=== PATIENT | male | born 1965 | race Caucasian/White ===

== ENCOUNTER 2017-05-03 07:59 | Day surgery (SDC) | payer MEDICARE, MEDICAID ==
--- NOTE | 2017-04-26 09:51 | RADIOLOGY REPORT (SQ) ---
EXAM DESCRIPTION: CHEST PA/LATERAL COMPLETED DATE/TIME: 04/26/2017 9:15 am REASON FOR STUDY: PRE OP COMPARISON: 08/01/2016 EXAM PARAMETERS: NUMBER OF VIEWS: two views TECHNIQUE: Digital Frontal and Lateral radiographic views of the chest acquired. RADIATION DOSE: NA LIMITATIONS: none FINDINGS: LUNGS AND PLEURA: No opacities, masses or pneumothorax. No pleural effusion. MEDIASTINUM AND HILAR STRUCTURES: No masses or contour abnormalities. HEART AND VASCULAR STRUCTURES: Heart normal size. No evidence for failure. BONES: Partially visualized left total shoulder arthroplasty. No acute bony abnormality. Degenerati ve changes noted throughout the spine with disc space narrowing and osteophyte formation. HARDWARE: None in the chest. OTHER: No other significant finding. IMPRESSION: No acute cardiopulmonary disease. TECHNICAL DOCUMENTATION: JOB ID: [id number] [employer]- All Rights Reserved
[2017-04-26 10:20] LABS: APPEARANCE,URINE CLEAR; BILIRUBIN,URINE NEGATIVE (NEGATIVE); GLUCOSE, URINE >=500 mg/dL (NEGATIVE); KETONES,URINE NEGATIVE (NEGATIVE); LEUKOCYTE ESTERASE,URINE NEGATIVE (NEGATIVE); NITRITE,URINE NEGATIVE (NEGATIVE); PROTEIN,URINE NEGATIVE (NEGATIVE); URINE SPECIFIC GRAVITY 1.009; UROBILINOGEN,URINE NEGATIVE mg/dL (<2.0)
[2017-04-26 10:21] LABS: ABSOLUTE BASOPHILS # (AUTO) 0.1 10^3/uL (0.0-0.2); ABSOLUTE EOSINOPHILS # (AUTO) 0.7 10^3/uL (0.0-0.6); ABSOLUTE LYMPHOCYTES (AUTO) 2.5 10^3/uL (0.5-4.7); ABSOLUTE MONOCYTES (AUTO) 0.5 10^3/uL (0.1-1.4); ABSOLUTE NEUT (AUTO) 7.1 10^3/uL (1.7-8.2); EOSINOPHILS % (AUTO) 6.3 % (0-6); HEMATOCRIT 46.3 % (37.9-51.0); HEMOGLOBIN 15.5 g/dL (13.5-17.0); HGB HCT DIFFERENCE 0.2; LYMPHOCYTES % (AUTO) 22.9 % (13-45); MEAN CORPUSCULAR HEMOGLOBIN 29.2 pg (27.0-33.4); MEAN CORPUSCULAR HGB CONC 33.6 g/dL (32.0-36.0); MEAN CORPUSCULAR VOLUME 87 fl (80-97); MONOCYTES % (AUTO) 4.6 % (3-13); RED BLOOD COUNT 5.32 10^6/uL (4.35-5.55); RED CELL DISTRIBUTION WIDTH 13.4 % (11.5-14.0); SEGMENTED NEUTROPHILS % (AUTO) 65.2 % (42-78)
[2017-04-26 10:43] LABS: ANION GAP 15 (5-19); BLOOD UREA NITROGEN 12 mg/dL (7-20); CALCIUM 10.1 mg/dL (8.4-10.2); CARBON DIOXIDE 22 mmol/L (22-30); CHLORIDE 104 mmol/L (98-107); CREATININE RESULT 0.61 mg/dL (0.52-1.25); GLUCOSE 233 mg/dL (75-110); POTASSIUM 4.9 mmol/L (3.6-5.0); SODIUM 140.7 mmol/L (137-145)
--- NOTE | 2017-04-26 11:18 | EKG REPORT ---
SEVERITY:- NORMAL ECG - SINUS RHYTHM : Confirmed by: Rosangela Vizcaino 26-Apr-2017 11:18:36
[~2017-05-03 07:59] MED LIST: CEFAZOLIN 2 GM/D5W RTU 2 GM/50 ML RTUPB IV PRN; LACTATED RINGERS 1000 ML IV PRN
[2017-05-03] MEDS ORDERED: BUPIVACAINE HCL 0.5 % INJ/PF 30 ML SDV ONE (09:32)
[2017-05-03] MEDS ORDERED: LIDOCAINE 1%/EPINEPHRINE INJ 20 ML VIAL ONE (09:32)
[2017-05-03] MEDS ORDERED: FENTANYL CITRATE INJ/PF 100 MCG/2 ML AMPUL ONE ×2 (10:04)
[2017-05-03] MEDS ORDERED: MORPHINE SULFATE 10 MG/ML INJ ONE (10:05)
[2017-05-03] MEDS ORDERED: MIDAZOLAM 2 MG/2 ML INJ ONE (10:05)
[2017-05-03] MEDS ORDERED: PROPOFOL INJ 200 MG/20 ML VIAL IV ONE (10:05)
[2017-05-03] MEDS ORDERED: DIPHENHYDRAMINE HCL 50 MG/ML VIAL IV PRN (10:37)
[2017-05-03] MEDS ORDERED: MORPHINE SULFATE 10 MG/ML INJ IV PRN (10:37)
[2017-05-03] MEDS ORDERED: MEPERIDINE HCL/PF INJ 25 MG/1 ML DISP.SYRIN IV PRN (10:37)
[2017-05-03] MEDS ORDERED: FENTANYL CITRATE INJ/PF 100 MCG/2 ML AMPUL IV PRN ×3 (10:37)
[2017-05-03] MEDS ORDERED: PROMETHAZINE HCL INJ 25 MG/1 ML VIAL IV PRN ×2 (10:37)
--- NOTE | 2017-05-03 10:55 | Operative Report ---
Operative Report DATE OF SURGERY: 05/03/17 PREOPERATIVE DIAGNOSIS: Right medial meniscal tear POSTOPERATIVE DIAGNOSIS: Right medial meniscal tear. Right medial femoral condyle osteochondral lesion. ACL deficiency. Right lateral meniscal tear. Right lateral femoral condyle osteochondral lesion. Grade II chondromalacia the patellofemoral compartment OPERATION: After partial medial and lateral meniscectomy abrasion chondroplasty medial lateral femoral condyles SURGEON: HERNAN ROSEN ANESTHESIA: LMAC ESTIMATED BLOOD LOSS: Minimal PROCEDURE: With the patient supine in the operating table the right lower extremity was prepped and draped in a sterile fashion. The knee is insufflated with Marcaine , Xylocaine, and epinephrine through medial lateral patella portals. Medial lateral patella portals were then created with injection of the arthroscope and debridement mentation. Joint is examined in systematic fashion findings as above. Using an elective frequency ablation probable partial medial meniscectomy performed from approximately 4:00 to 12:00 in the face with Dial. Partial lateral meniscectomy was performed from approximately 7:00 to 12:00 on the face with Dial. An abrasion chondroplasty was performed in the lateral femoral condyle using microfracture awls. Likewise the medial femoral condyle lesion is debrided of loose chondral tissue and then abrasion chondroplasty was performed using microfracture awls. At this point instrumentations removed. Portals closed with nylon. A sterile compressive dressing was applied and the patient was returned to recovery in satisfactory condition.
[2017-05-03] MEDS ORDERED: HYDROCODONE/ACETAMINOPHEN 10-325 MG TABLET PO PRN (12:12)
[2017-05-03] MEDS ORDERED: ONDANSETRON 4 MG TAB.RAPDIS PO PRN (12:13)
[2017-05-03 12:36] VITALS: BP 134/83
== END 2017-05-03 12:33 | disposition home or self-care (01) ==
LOC: OROUT 07:59
PROVIDERS: ATTEND Orthopaedic Surgery
PROC: 0SBC4ZZ Excision of Right Knee Joint, Percutaneous Endoscopic Approach (ICD-10-PCS; 2017-05-03)
PROC: 0SBC4ZZ Excision of Right Knee Joint, Percutaneous Endoscopic Approach (ICD-10-PCS; principal; 2017-05-03 10:00)
DX: M23.205 Derangement of unspecified medial meniscus due to old tear or injury, unspecified knee (principal); M22.41 Chondromalacia patellae, right knee; M25.561 Pain in right knee; F17.210 Nicotine dependence, cigarettes, uncomplicated; M19.90 Unspecified osteoarthritis, unspecified site; E11.9 Type 2 diabetes mellitus without complications; Z79.899 Other long term (current) drug therapy; Z79.84 Long term (current) use of oral hypoglycemic drugs
CPT/HCPCS: 93005; 36415; 82962; 85025; 80048; 81001; 71020; 93010; 29880; J2250; J3010; J3490; J2270; J2704; J0690; 1400

== ENCOUNTER → 2017-10-11 | Outpatient (CLI) | payer MEDICARE, MEDICAID ==
--- NOTE | 2017-10-11 12:58 | RADIOLOGY REPORT (SQ) ---
EXAM DESCRIPTION: CHEST PA/LATERAL COMPLETED DATE/TIME: 10/11/2017 12:13 pm REASON FOR STUDY: PRE OP COMPARISON: 04/26/2017. EXAM PARAMETERS: NUMBER OF VIEWS: two views TECHNIQUE: Digital Frontal and Lateral radiographic views of the chest acquired. RADIATION DOSE: NA LIMITATIONS: none FINDINGS: LUNGS AND PLEURA: No opacities, masses or pneumothorax. No pleural effusion. MEDIASTINUM AND HILAR STRUCTURES: No masses or contour abnormalities. HEART AND VASCULAR STRUCTURES: Heart normal size. No evidence for failure. BONES: No acute findings. HARDWARE: Left shoulder prosthesis. OTHER: No other significant finding. IMPRESSION: NO SIGNIFICANT RADIOGRAPHIC FINDING IN THE CHEST. TECHNICAL DOCUMENTATION: JOB ID: [id number] [employer]- All Rights Reserved
--- NOTE | 2017-10-11 13:22 | EKG REPORT ---
SEVERITY:- NORMAL ECG - SINUS RHYTHM : Confirmed by: Rick Groves MD 11-Oct-2017 13:21:46
[2017-10-11 13:45] LABS: APPEARANCE,URINE SLIGHTLY-CLOUDY; BILIRUBIN,URINE NEGATIVE (NEGATIVE); GLUCOSE, URINE NEGATIVE (NEGATIVE); KETONES,URINE TRACE mg/dL (NEGATIVE); LEUKOCYTE ESTERASE,URINE NEGATIVE (NEGATIVE); NITRITE,URINE NEGATIVE (NEGATIVE); PROTEIN,URINE 30 mg/dL (NEGATIVE); URINE SPECIFIC GRAVITY 1.033
[2017-10-11 13:46] LABS: ABSOLUTE BASOPHILS # (AUTO) 0.1 10^3/uL (0.0-0.2); ABSOLUTE EOSINOPHILS # (AUTO) 0.5 10^3/uL (0.0-0.6); ABSOLUTE LYMPHOCYTES (AUTO) 3.1 10^3/uL (0.5-4.7); ABSOLUTE MONOCYTES (AUTO) 0.6 10^3/uL (0.1-1.4); ABSOLUTE NEUT (AUTO) 6.1 10^3/uL (1.7-8.2); BASOPHILS % (AUTO) 0.9 % (0-2); HEMATOCRIT 45.4 % (37.9-51.0); HEMOGLOBIN 15.9 g/dL (13.5-17.0); HGB HCT DIFFERENCE 2.3; LYMPHOCYTES % (AUTO) 29.7 % (13-45); MEAN CORPUSCULAR HEMOGLOBIN 30.3 pg (27.0-33.4); MEAN CORPUSCULAR HGB CONC 34.9 g/dL (32.0-36.0); MEAN CORPUSCULAR VOLUME 87 fl (80-97); MONOCYTES % (AUTO) 5.5 % (3-13); RED BLOOD COUNT 5.23 10^6/uL (4.35-5.55); RED CELL DISTRIBUTION WIDTH 13.3 % (11.5-14.0); SEGMENTED NEUTROPHILS % (AUTO) 58.9 % (42-78); WHITE BLOOD COUNT 10.3 10^3/uL (4.0-10.5)
[2017-10-11 14:14] LABS: ANION GAP 14 (5-19); BLOOD UREA NITROGEN 13 mg/dL (7-20); CALCIUM 10.4 mg/dL (8.4-10.2); CARBON DIOXIDE 28 mmol/L (22-30); CHLORIDE 104 mmol/L (98-107); CREATININE RESULT 0.69 mg/dL (0.52-1.25); GLUCOSE 152 mg/dL (75-110); POTASSIUM 5.5 mmol/L (3.6-5.0); SODIUM 146.2 mmol/L (137-145)
== END ==
LOC: OD 11:34
PROVIDERS: ATTEND Orthopaedic Surgery
DX: Z01.818 Encounter for other preprocedural examination (principal); M17.11 Unilateral primary osteoarthritis, right knee
CPT/HCPCS: 36415; 71020; 80048; 81001; 85025; 93005; 93010

== ENCOUNTER 2017-10-23 06:52 | Inpatient (IN) | payer MEDICARE, MEDICAID ==
[~2017-10-23 06:52] MED LIST changes: +BUPIVACAINE INJ/PF LIPOSOME/PF 266 MG/20 ML SDV INJ PRN; -CEFAZOLIN 2 GM/D5W RTU 2 GM/50 ML RTUPB IV PRN; +IBUPROFEN 800 MG in NORMAL SALINE 250 ML IV PRN; +LANSOPRAZOLE 15 MG TAB.RAP.DR PO PRN; +LIDOCAINE 0.5% INJ-PF (5 MG/ML) 50 ML SDV SUBCUT PRN; +ONDANSETRON HCL INJ/PF 4 MG/2 ML SDV IV PRN; +OXYCODONE HCL SR 10 MG TABLET PO PRN; +TRANEXAMIC ACID INJ/PF 1,000 MG/10 ML SDV IV PRN; +VANCOMYCIN HCL 1,000 MG in DEXTROSE 5%-WATER 250 ML IV PRN
[2017-10-23] MEDS ORDERED: CEFAZOLIN INJ 1 GM VIAL ONE (07:05)
[2017-10-23] MEDS ORDERED: ONDANSETRON HCL INJ/PF 4 MG/2 ML SDV ONE (08:13)
[2017-10-23] MEDS ORDERED: DEXAMETHASONE SOD PHOSPHATE INJ 4 MG/1 ML VIAL ONE ×2 (08:13→12:52)
[2017-10-23] MEDS ORDERED: PROPOFOL INJ 200 MG/20 ML VIAL IV ONE ×2 (08:13→11:24)
[2017-10-23] MEDS ORDERED: FENTANYL CITRATE INJ/PF 100 MCG/2 ML AMPUL ONE ×2 (08:13)
[2017-10-23] MEDS ORDERED: MIDAZOLAM 2 MG/2 ML INJ ONE (08:13)
[2017-10-23] MEDS ORDERED: MORPHINE SULFATE 10 MG/ML INJ ONE (08:14)
[2017-10-23] MEDS ORDERED: TRANEXAMIC ACID INJ/PF 1,000 MG/10 ML SDV IV ONE ×3 (08:14→12:30)
[2017-10-23] MEDS: BUPIVACAINE INJ/PF LIPOSOME/PF 266 MG/20 ML SDV ONE ×2 (08:50→09:53)
[2017-10-23] MEDS: THROMBIN (BOVINE) TOPICAL 20000 UNIT VIAL ONE ×2 (08:51→09:53)
[2017-10-23] MEDS: THROMBIN (BOVINE) 5000 UNIT EPITAXIS KIT ONE ×2 (08:52→09:53)
[2017-10-23] MEDS ORDERED: FENTANYL CITRATE INJ/PF 100 MCG/2 ML AMPUL IV PRN ×3 (10:03)
[2017-10-23] MEDS ORDERED: DIPHENHYDRAMINE HCL 50 MG/ML VIAL IV PRN ×2 (10:03→10:43)
[2017-10-23] MEDS ORDERED: PROMETHAZINE HCL INJ 25 MG/1 ML VIAL IV PRN ×2 (10:03)
[2017-10-23] MEDS ORDERED: MEPERIDINE HCL/PF INJ 25 MG/1 ML DISP.SYRIN IV PRN (10:03)
[2017-10-23] MEDS ORDERED: MORPHINE SULFATE 10 MG/ML INJ IV PRN ×4 (10:03→10:43)
[2017-10-23] MEDS ORDERED: ONDANSETRON 4 MG TAB.RAPDIS PO PRN ×2 (10:43→12:30)
[2017-10-23] MEDS ORDERED: ONDANSETRON HCL INJ/PF 4 MG/2 ML SDV IV PRN ×2 (10:43→12:30)
[2017-10-23] MEDS ORDERED: ACETAMINOPHEN 325 MG TABLET PO PRN (10:43)
[2017-10-23] MEDS ORDERED: ZOLPIDEM TARTRATE 5 MG TABLET PO PRN ×2 (10:43→12:30)
[2017-10-23] MEDS ORDERED: MAG HYDROX/AL HYDROX/SIMETH SUSP 30 ML UDCUP PO PRN ×2 (10:43→12:30)
--- NOTE | 2017-10-23 10:43 | Operative Report ---
Operative Report DATE OF SURGERY: 10/23/17 PREOPERATIVE DIAGNOSIS: Right knee arthritis OPERATION: Right knee arthroplasty ANESTHESIA: GA TISSUE REMOVED OR ALTERED: Bone to pathology ESTIMATED BLOOD LOSS: 100 PROCEDURE: Implants used: Femur: Cheri triathlon size 8 CR femur Tibia: 7 tibia Tibial liner: 9 mm CS insert Patella: 38 mm oval patella Procedure with the patient supine on the operating table the right the limb is prepped and draped in a sterile fashion. The limb was elevated for exsanguination and the tourniquet inflated to 280 torr. A standard midline median parapatellar approach the knee is taken. Access is gained to the femoral canal through the intercondylar notch. Intramedullary alignment instrumentation used to resect 10 mm of distal femur in 5 of valgus. Sizing guide indicated a size 8 femur. Appropriate cutting jig is then used to fashion anterior posterior and chamfer cuts. In this process there is notching of the anterior femur. In that this is the largest size femur available I think this is unavoidable. A trial reduction of the femur is performed and this is judged to be adequate. Attention was next turned to the tibia. Using an extra medullary alignment system 9 millimeters was resected off the lateral tibial plateau. This is sized to a size 7 tibia. A trial reduction was now performed with a 8 femur and a 7 tibia using a 9 millimeters spacer. It is full extension and central patellofemoral tracking. The articular surface the patella was next resected using an oscillating saw. All trial implants were removed. Polymethylmethacrylate is mixed and used to cement the above implants in place. On adequate curing the cement excess cement was removed the tourniquet was deflated hemostasis obtained the wound is then closed in layers using interrupted Vicryl followed by shawn. A sterile compressive dressing was applied and the patient returned to recovery room in satisfactory condition.
[2017-10-23] MEDS ORDERED: (PENDING PHARMACY ID) (Albuterol Sulfate [Proair Respiclick] 2 PUFF) IN PRN ×2 (10:45→11:22)
--- NOTE | 2017-10-23 11:43 | RADIOLOGY REPORT (SQ) ---
EXAM DESCRIPTION: KNEE RIGHT 2 VIEWS COMPLETED DATE/TIME: 10/23/2017 11:32 am REASON FOR STUDY: Post OP -Long Cassette in PACU M17.11 UNILATERAL PRIMARY OSTEOARTHRITIS, RIGHT KN EE COMPARISON: MRI 08/07/2015, Left knee films 07/14/2016 NUMBER OF VIEWS: Two views TECHNIQUE: Digital radiographic images of the right knee post-procedure. LIMITATIONS: None. FINDINGS: Post right total knee replacement with patellar resurfacing. Few small bone fragments see n along the infrapatellar fat pad. Normal alignment. Surgical skin shawn, benign postop air. IMPRESSION: SATISFACTORY POSTOPERATIVE RIGHT KNEE. TECHNICAL DOCUMENTATION: JOB ID: [id number] [employer]- All Rights Reserved
[2017-10-23] MEDS ORDERED: DEXTROSE 50%-WATER SYRINGE 12.5 GM/25 ML DOSE IV PRN (11:45)
[2017-10-23] MEDS ORDERED: DEXTROSE 40% GEL 15 GM TUBE X 2 PO PRN (11:45)
[2017-10-23] MEDS ORDERED: DEXTROSE 40% GEL 15 GM TUBE PO PRN (11:45)
[2017-10-23] MEDS ORDERED: DEXTROSE 50%-WATER SYRINGE 25 GM/50 ML DOSE IV PRN (11:45)
[2017-10-23] MEDS ORDERED: GLUCAGON,HUMAN RECOMB 1 MG INJ IM PRN (11:45)
[2017-10-23] MEDS ORDERED: ROCURONIUM BROMIDE INJ 50 MG/5 ML VIAL IV ONE (12:52)
[2017-10-23] MEDS ORDERED: SUCCINYLCHOLINE CHLORIDE INJ 200 MG/10 ML VIAL ONE (12:52)
[2017-10-23] MEDS ORDERED: GLYCOPYRROLATE INJ 0.4 MG/2 ML VIAL ONE (12:52)
[2017-10-23] MEDS ORDERED: LIDOCAINE 2% INJ-PF (20 MG/ML) 2 ML AMPUL ONE (12:52)
[2017-10-23] MEDS ORDERED: NEOSTIGMINE METHYLSULFATE 10 MG/10 ML VIAL ONE (12:52)
[2017-10-23] MEDS: MORPHINE SULFATE 10 MG/ML INJ IM PRN ×3 (13:01→21:17)
[2017-10-23] MEDS ORDERED: ALBUTEROL SULFATE HFA (90 MCG/PUFF) 200 PUFF/8.5 GM MDI IH PRN (13:38)
[2017-10-23] MEDS: OXYCODONE HCL IR 5 MG TABLET PO PRN ×2 (13:59→20:35)
[2017-10-23] MEDS: INSULIN LISPRO 100 UNIT/ML 3 ML VIAL SUBCUT PRN ×3 (15:40→21:16)
[2017-10-23] MEDS: METFORMIN HCL 500 MG TABLET PO SCH (16:51)
[2017-10-23] MEDS ORDERED: ACETAMINOPHEN 100 ML IV ONE (17:00)
[2017-10-23] MEDS: PREGABALIN 75 MG CAPSULE PO SCH (17:54)
[2017-10-23] MEDS: CYCLOBENZAPRINE HCL 10 MG TABLET PO SCH (17:54)
[2017-10-23] MEDS ORDERED: PREGABALIN 100 MG CAPSULE PO SCH (18:00)
[2017-10-23] MEDS: SENNOSIDES/DOCUSATE 8.6-50 MG 1 EACH TABLET PO SCH (18:01)
[2017-10-23] MEDS: RINGERS SOLUTION,LACTATED 1,000 ML IV PRN (20:29)
[2017-10-23] MEDS: OXYCODONE HCL SR 10 MG TABLET PO SCH (21:17)
[2017-10-23] MEDS ORDERED: VANCOMYCIN HCL 1,000 MG in DEXTROSE 5%-WATER 250 ML IV ONE (22:45)
[2017-10-24] MEDS: MORPHINE SULFATE 10 MG/ML INJ IM PRN (03:18)
[2017-10-24 05:22] LABS: HEMATOCRIT 36.4 % (37.9-51.0); HEMOGLOBIN 12.5 g/dL (13.5-17.0); HGB HCT DIFFERENCE 1.1; MEAN CORPUSCULAR HEMOGLOBIN 29.6 pg (27.0-33.4); MEAN CORPUSCULAR HGB CONC 34.4 g/dL (32.0-36.0); MEAN CORPUSCULAR VOLUME 86 fl (80-97); RED BLOOD COUNT 4.23 10^6/uL (4.35-5.55); RED CELL DISTRIBUTION WIDTH 13.3 % (11.5-14.0); WHITE BLOOD COUNT 14.8 10^3/uL (4.0-10.5)
[2017-10-24 05:35] LABS: ANION GAP 8 (5-19); BLOOD UREA NITROGEN 12 mg/dL (7-20); CALCIUM 9.3 mg/dL (8.4-10.2); CARBON DIOXIDE 28 mmol/L (22-30); CHLORIDE 103 mmol/L (98-107); CREATININE RESULT 0.71 mg/dL (0.52-1.25); GLUCOSE 201 mg/dL (75-110); SODIUM 139.3 mmol/L (137-145)
[2017-10-24] MEDS ORDERED: LANSOPRAZOLE 30 MG TAB.RAP.DR PO SCH (06:00)
[2017-10-24] MEDS: RINGERS SOLUTION,LACTATED 1,000 ML IV PRN (06:00)
--- NOTE | 2017-10-24 06:50 | PDOC DISCHARGE SUMMARY ---
General - Admit/Disc Date/PCP Admission Date/Primary Care Provider: 10/23/17 06:52 Discharge Date: 10/24/17 - Discharge Diagnosis (1) Arthritis of knee, right Is this a current diagnosis for this admission?: Yes - Additional Information Resuscitation Status: Full Code Discharge Diet: As Tolerated, Regular Discharge Activity: Activity As Tolerated, No Driving, No tub bath, Walk Frequently Home Medications: Pregabalin [Lyrica] 150 mg PO Q8 01/31/13 Hydrocodone/Acetaminophen [Lortab 10-325 mg Tablet] 1 tab PO Q6HP PRN 09/06/16 Metformin HCl [Glucophage] 1,000 mg PO BID 09/06/16 Sitagliptin Phosphate [Januvia] 100 mg PO DAILY 09/06/16 Fluticasone Propionate [Flonase Nasal [place] 50 Mcg/[place] 16 gm] 1 spray NASL DAILY 05/03/17 Cyclobenzaprine HCl 10 mg PO Q8 10/09/17 Lisinopril 20 mg PO DAILY 10/09/17 Meloxicam 7.5 mg PO ASDIR PRN 10/09/17 History of Present Illness History of Present Illness: ZAKI HALL is a 51 year old male with right knee arthritis admitted for elective total right knee arthroplasty. Hospital Course Hospital Course: Patient was admitted through the OR and underwent elective total right knee arthroplasty that was uncomplicated. He was returned to the PACU in satisfactory condition. He was then taken to the surgical floor and seen by physical therapy and nursing staff for pain control. He made progress with physical therapy ambulating 300 feet independently. He will be discharged home today with home health nursing, home physical therapy, wheeled walker and bedside commode. Physical Exam Vital Signs: Temp Pulse Resp BP Pulse Ox 36.8 C 71 17 130/71 H 95 10/24/17 03:50 10/24/17 03:50 10/24/17 03:50 10/24/17 03:50 10/24/17 03:50 Pulse Oximeter Continuous Start: 10/23/17 14: 07 Freq: RTQ4 Status: Active Document 10/24/17 03:41 SFL (Rec: 10/24/17 03:41 SFL [email or web address]) Pulse Oximetry Assessment Oxygen Saturation (92-100) 96 Oxygen Delivery Method Room Air Equipment Usage Equipment in Use Continuous SpO2 Machine # 11 Intake & Output 10/22/17 10/23/17 10/24/17 06:59 06:59 06:59 Intake Total 6350 Output Total 3580 Balance 2770 Weight 177.81 kg General appearance: PRESENT: no acute distress, well-developed, well-nourished Head exam: PRESENT: atraumatic, normocephalic Respiratory exam: PRESENT: unlabored Pulses: PRESENT: normal dorsalis pedis pul, +2 pedal pulses bilateral Vascular exam: PRESENT: normal capillary refill Extremities exam: PRESENT: joint swelling, tenderness Additional comments: Patient lying recumbent in hospital bed with right lower extremity in extension with slight contracture of right knee. Patient's OpSite dressing is saturated with gonzalo blood this dressing is changed and a new one place that is clean dry and intact. He has brisk capillary refill to toes on bilateral lower extremities has +2 pedal pulses. He is tender to palpation about the right knee and there is moderate joint swelling. His sensory and motor functions are intact and his distal neurovascular exam is intact. Musculoskeletal exam: PRESENT: ambulatory Additional comments: Patient makes great progress with physical therapy ambulating 300 feet independently. He will continue to work with home physical therapy to improve strength and range of motion and work towards further ambulation. Neurological exam: PRESENT: alert, awake, oriented to person, oriented to place , oriented to time, oriented to situation, CN II-XII grossly intact. ABSENT: motor sensory deficit Psychiatric exam: PRESENT: appropriate affect, normal mood. ABSENT: homicidal ideation, suicidal ideation Skin exam: PRESENT: dry, intact, warm. ABSENT: cyanosis, rash Results Laboratory Results: 10/24/17 05:04 10/24/17 05:04 10/23/17 10/24/17 10/24/17 08:00 05:04 05:04 WBC 14.8 H RBC 4.23 L Hgb 12.5 L Hct 36.4 L MCV 86 MCH 29.6 MCHC 34.4 RDW 13.3 Plt Count 257 Sodium 139.3 Potassium 4.4 5.0 Chloride 103 Carbon Dioxide 28 Anion Gap 8 BUN 12 Creatinine 0.71 Est GFR ( Amer) > 60 Est GFR (Non-Af Amer) > 60 Glucose 201 H Calcium 9.3 Impressions: Knee X-Ray 10/23/17 10:44 IMPRESSION: SATISFACTORY POSTOPERATIVE RIGHT KNEE. Plan Discharge Plan: 51-year-old white male 1 day status post total right knee arthroplasty. He has made great progress with physical therapy ambulating 300 feet independently and his pain is well controlled. He will be discharged home today with home health nursing, home physical therapy, walker, bedside commode. The long-term service will change his OpSite dressing when they see fit i.e. when it is saturated with gonzalo blood. He will follow-up with Dr. Malin and Chuck LEGER at [facility] surgery 2 weeks postoperatively for staple removal and reevaluation. Time Spent: Less than 30 Minutes
[2017-10-24] MEDS ORDERED: SITAGLIPTIN PHOSPHATE 50 MG TABLET PO SCH (08:00)
[2017-10-24] MEDS: OXYCODONE HCL IR 5 MG TABLET PO PRN (08:24)
[2017-10-24] MEDS: METFORMIN HCL 500 MG TABLET PO SCH (08:25)
[2017-10-24 09:48] VITALS: BP 145/94
[2017-10-24] MEDS: SENNOSIDES/DOCUSATE 8.6-50 MG 1 EACH TABLET PO SCH (09:55)
[2017-10-24] MEDS: CYCLOBENZAPRINE HCL 10 MG TABLET PO SCH (09:55)
[2017-10-24] MEDS: PREGABALIN 75 MG CAPSULE PO SCH (09:55)
[2017-10-24] MEDS: OXYCODONE HCL SR 10 MG TABLET PO SCH (09:56)
[2017-10-24] MEDS ORDERED: PRENATAL VITAMIN W DHA CAPSULE PO SCH (10:00)
[2017-10-24] MEDS ORDERED: FLUTICASONE NASAL SPRAY 50 MCG/SPRY 120 SPRAY/16 GM NASL SCH (10:00)
[2017-10-24] MEDS ORDERED: (PENDING PHARMACY ID) (Lisinopril [Lisinopril] 20 MG) PO SCH (10:00)
[2017-10-24] MEDS ORDERED: LISINOPRIL 10 MG TABLET PO SCH (10:00)
== END 2017-10-24 10:30 | disposition home health service (06) | DRG 470 ==
LOC: INOR 06:52 → 4S 12:54
PROVIDERS: ADMIT Orthopaedic Surgery; ATTEND Orthopaedic Surgery
PROC: 0SRC0J9 Replacement of Right Knee Joint with Synthetic Substitute, Cemented, Open Approach (ICD-10-PCS; principal; 2017-10-23 08:45)
DX: M17.11 Unilateral primary osteoarthritis, right knee (principal); E11.9 Type 2 diabetes mellitus without complications; Z79.84 Long term (current) use of oral hypoglycemic drugs
CPT/HCPCS: 01402; 36415; 80048; 82962; 84132; 85027; 88305; 88311; 94762; 94799; C2625; C9290; G8978-GP; G8979-GP; J0131; J0330; J0690; J1100; J1741; J1815; J2250; J2270; J2405; J2704; J3010; J3370; J3490; J7050; J7060; J7120

== ENCOUNTER → 2018-05-29 | Outpatient (CLI) | payer MEDICARE, MEDICAID ==
[2018-05-29 10:11] LABS: ABSOLUTE BASOPHILS # (AUTO) 0.1 10^3/uL (0.0-0.2); ABSOLUTE EOSINOPHILS # (AUTO) 0.5 10^3/uL (0.0-0.6); ABSOLUTE LYMPHOCYTES (AUTO) 2.4 10^3/uL (0.5-4.7); ABSOLUTE MONOCYTES (AUTO) 0.5 10^3/uL (0.1-1.4); ABSOLUTE NEUT (AUTO) 6.1 10^3/uL (1.7-8.2); BASOPHILS % (AUTO) 0.8 % (0-2); EOSINOPHILS % (AUTO) 4.8 % (0-6); HEMATOCRIT 42.9 % (37.9-51.0); HEMOGLOBIN 14.7 g/dL (13.5-17.0); MEAN CORPUSCULAR HEMOGLOBIN 29.5 pg (27.0-33.4); MEAN CORPUSCULAR HGB CONC 34.3 g/dL (32.0-36.0); MEAN CORPUSCULAR VOLUME 86 fl (80-97); MONOCYTES % (AUTO) 5.1 % (3-13); PLATELET COUNT 305 10^3/uL (150-450); RED CELL DISTRIBUTION WIDTH 13.6 % (11.5-14.0); SEGMENTED NEUTROPHILS % (AUTO) 64.3 % (42-78); TOTAL CELLS COUNTED % (AUTO) 100 %; WHITE BLOOD COUNT 9.5 10^3/uL (4.0-10.5)
[2018-05-29 11:01] LABS: ERYTHROCYTE SEDIMENTATION RATE 22 mm/hr (0-20)
[2018-05-29 11:28] LABS: ANION GAP 12 (5-19); BLOOD UREA NITROGEN 14 mg/dL (7-20); C-REACTIVE PROTEIN 9.5 mg/L (<10.0); CALCIUM 9.9 mg/dL (8.4-10.2); CARBON DIOXIDE 26 mmol/L (22-30); CHLORIDE 103 mmol/L (98-107); GLUCOSE 219 mg/dL (75-110); POTASSIUM 5.2 mmol/L (3.6-5.0); SODIUM 140.6 mmol/L (137-145)
== END ==
LOC: OD 09:04
PROVIDERS: ATTEND Orthopaedic Surgery
DX: M25.561 Pain in right knee (principal)
CPT/HCPCS: 36415; 80048; 85025; 85652; 86140

== ENCOUNTER → 2018-06-11 | Outpatient (CLI) | payer MEDICARE, MEDICAID ==
--- NOTE | 2018-06-11 12:35 | RADIOLOGY REPORT (SQ) ---
EXAM DESCRIPTION: KNEE RIGHT 2 VIEWS COMPLETED DATE/TIME: 06/11/2018 11:50 am REASON FOR STUDY: PRESENCE OF ARTIFICAL R KNEE, LOOSENING Z96.659 PRESENCE OF UNSPECIFIED ARTIFICIA L KNEE JOINT COMPARISON: 10/23/2017. NUMBER OF VIEWS: Two views. TECHNIQUE: AP and lateral radiographic images acquired of the right knee. LIMITATIONS: None. FINDINGS: MINERALIZATION: Normal. BONES: Stable prosthesis. No acute fracture or dislocation. No worrisome bone lesions. JOINT: No effusion. SOFT TISSUES: No soft tissue swelling. No radio-opaque foreign body. OTHER: No other significant finding. IMPRESSION: STABLE KNEE PROSTHESIS. NO SIGNIFICANT BONY FINDINGS. TECHNICAL DOCUMENTATION: JOB ID: [id number] [employer]- All Rights Reserved Reading location - IP/workstation name: [email or web address]
--- NOTE | 2018-06-11 15:56 | RADIOLOGY REPORT (SQ) ---
EXAM DESCRIPTION: NM 3 PHASE BONE SCAN COMPLETED DATE/TIME: 06/11/2018 11:38 am REASON FOR STUDY: PRESENCE OF ARTIFICIAL KNEE JOINT (Z96.659) Z96.659 PRESENCE OF UNSPECIFIED ARTIF ICIAL KNEE JOINT COMPARISON: Right knee radiograph 06/11/2018 right knee radiographs 10/23/2017 RADIONUCLIDE AND DOSE: 20 millicuries Tc99m HDP. The route of agent administration: Intravenous. ADDITIONAL DRUGS AND DOSES: None. TECHNIQUE: Following injection of the radiopharmaceutical, serial blood flow images acquired. Equil ibrium blood pool images then acquired. Routine delayed images at 3 hours acquired of the areas of c linical concern with additional focused images as needed. AREA OF INTEREST: Right knee LIMITATIONS: None. FINDINGS: VASCULAR FLOW IMAGES: There is greater flow to the right lower extremity compared to the l eft. BLOOD POOL IMAGES: Blood pool imaging shows increased activity in the right knee compared to the left . BONES: Bilateral knee arthroplasties. There is increased activity in the right distal femur and prox imal tibia. KIDNEYS: Symmetric excretion without obstruction. OTHER: No other significant finding. IMPRESSION: There is increased blood flow on the right with increased blood pool activity in the rig ht knee. Delayed images show increased activity in the right knee. This is a nonspecific finding. The right knee arthroplasty is more recent than the left, so increased activity would be expected com pared to the left. COMMENT: Quality measure 147: Current bone scan is compared with any available plain radiographs, p rior bone scans, and CT/MRI. TECHNICAL DOCUMENTATION: JOB ID: [id number] [employer]- All Rights Reserved Reading location - IP/workstation name: [email or web address]
== END ==
LOC: RAD 07:28
PROVIDERS: ATTEND Orthopaedic Surgery
DX: T84.092A Other mechanical complication of internal right knee prosthesis, initial encounter (principal); X58.XXXA Exposure to other specified factors, initial encounter; Z96.651 Presence of right artificial knee joint
CPT/HCPCS: 73560; 78315; A9561

== ENCOUNTER → 2018-11-29 | Outpatient (CLI) | payer MEDICARE, MEDICAID ==
--- NOTE | 2018-11-29 16:53 | RADIOLOGY REPORT (SQ) ---
EXAM DESCRIPTION: NM 3 PHASE BONE SCAN COMPLETED DATE/TIME: 11/29/2018 4:28 pm REASON FOR STUDY: PAIN IN LEFT SHOULDER (M25.512) M25.512 PAIN IN LEFT SHOULDER COMPARISON: Left shoulder radiograph 09/19/2016 RADIONUCLIDE AND DOSE: 20 millicuries Tc99m HDP. The route of agent administration: Intravenous. ADDITIONAL DRUGS AND DOSES: None. TECHNIQUE: Following injection of the radiopharmaceutical, serial blood flow images acquired. Equil ibrium blood pool images then acquired. Routine delayed images at 3 hours acquired of the areas of c linical concern with additional focused images as needed. AREA OF INTEREST: Left shoulder LIMITATIONS: None. FINDINGS: VASCULAR FLOW IMAGES: No asymmetry or focal areas of hyperemia. BLOOD POOL IMAGES: No asymmetry or focal areas of soft-tissue hyper-perfusion. BONES: There is significantly increased uptake in the region the left glenoid. This focal uptake in the anterior 4th and 5th ribs on the left and in the right 7th and possibly 8th rib. There is uptake in the right acromioclavicular joint and in the region of the coracoid process on the right. KIDNEYS: Symmetric excretion without obstruction. OTHER: No other significant finding. IMPRESSION: 1. There is considerable uptake in the region of the glenoid on the left. Considerable activity can persist for an extended length of time after an arthroplasty, but the intensity of this uptake is concerning. Consider MRI of the left shoulder. 2. There is apparent degenerative uptake in the right acromioclavicular joint. 3. There is focal uptake in the right coracoid process, and in some of the ribs as described. This could relate to prior trauma if there is a history of such. Metastatic disease to bone cannot be exc luded. Consider radiographs of the ribs, right shoulder, and left shoulder. COMMENT: Quality measure 147: Current bone scan is compared with any available plain radiographs, p rior bone scans, and CT/MRI. TECHNICAL DOCUMENTATION: JOB ID: [id number] [employer]- All Rights Reserved Reading location - IP/workstation name: [email or web address]
== END ==
LOC: RAD 09:42
PROVIDERS: ATTEND Orthopaedic Surgery
DX: M25.512 Pain in left shoulder (principal)
CPT/HCPCS: 78315; A9561; Q9969

== ENCOUNTER → 2018-11-29 | Outpatient (CLI) | payer MEDICARE, MEDICAID ==
[2018-11-29 10:23] LABS: ABSOLUTE BASOPHILS # (AUTO) 0.1 10^3/uL (0.0-0.2); ABSOLUTE EOSINOPHILS # (AUTO) 0.5 10^3/uL (0.0-0.6); ABSOLUTE LYMPHOCYTES (AUTO) 2.1 10^3/uL (0.5-4.7); ABSOLUTE MONOCYTES (AUTO) 0.5 10^3/uL (0.1-1.4); ABSOLUTE NEUT (AUTO) 5.9 10^3/uL (1.7-8.2); BASOPHILS % (AUTO) 0.8 % (0-2); EOSINOPHILS % (AUTO) 5.5 % (0-6); HEMATOCRIT 42.6 % (37.9-51.0); HEMOGLOBIN 15.1 g/dL (13.5-17.0); LYMPHOCYTES % (AUTO) 22.9 % (13-45); MEAN CORPUSCULAR HEMOGLOBIN 30.2 pg (27.0-33.4); MEAN CORPUSCULAR HGB CONC 35.4 g/dL (32.0-36.0); MEAN CORPUSCULAR VOLUME 85 fl (80-97); MONOCYTES % (AUTO) 5.6 % (3-13); PLATELET COUNT 282 10^3/uL (150-450); RED BLOOD COUNT 4.99 10^6/uL (4.35-5.55); RED CELL DISTRIBUTION WIDTH 13.3 % (11.5-14.0); SEGMENTED NEUTROPHILS % (AUTO) 65.2 % (42-78); TOTAL CELLS COUNTED % (AUTO) 100 %
[2018-11-29 10:58] LABS: ANION GAP 9 (5-19); BLOOD UREA NITROGEN 15 mg/dL (7-20); C-REACTIVE PROTEIN 10.2 mg/L (<10.0); CALCIUM 10.1 mg/dL (8.4-10.2); CARBON DIOXIDE 28 mmol/L (22-30); CHLORIDE 102 mmol/L (98-107); GLUCOSE 243 mg/dL (75-110); POTASSIUM 4.8 mmol/L (3.6-5.0); SODIUM 138.9 mmol/L (137-145)
[2018-11-29 11:09] LABS: ERYTHROCYTE SEDIMENTATION RATE 22 mm/hr (0-20)
== END ==
LOC: OD 09:19
PROVIDERS: ATTEND Orthopaedic Surgery
DX: M25.512 Pain in left shoulder (principal)
CPT/HCPCS: 36415; 80048; 85025; 85652; 86140

== ENCOUNTER → 2019-01-09 | Outpatient (CLI) | payer MEDICARE, MEDICAID ==
--- NOTE | 2019-01-09 09:56 | RADIOLOGY REPORT (SQ) ---
EXAM DESCRIPTION: CHEST PA/LATERAL COMPLETED DATE/TIME: 01/09/2019 9:23 am REASON FOR STUDY: PRE-OP COMPARISON: 08/01/2016 08/01/2016 EXAM PARAMETERS: NUMBER OF VIEWS: two views TECHNIQUE: Digital Frontal and Lateral radiographic views of the chest acquired. RADIATION DOSE: NA LIMITATIONS: none FINDINGS: LUNGS AND PLEURA: The interstitial markings in the left infrahilar region are prominent i n appearance, may be on an acute inflammatory basis. The of right lung is clear. No pneumothorax or pleural effusion. MEDIASTINUM AND HILAR STRUCTURES: No masses or contour abnormalities. HEART AND VASCULAR STRUCTURES: Heart normal size. No evidence for failure. BONES: No acute findings. HARDWARE: None in the chest. OTHER: Partially visualize left shoulder arthroplasty, new finding since the prior examination. IMPRESSION: 1. Mildly prominent interstitial markings in the left infrahilar region since the previ ous examination dated 08/01/2016, may represent acute inflammatory changes. Correlation with history and symptoms suggested. TECHNICAL DOCUMENTATION: JOB ID: [id number] [employer]- All Rights Reserved Reading location - IP/workstation name: [email or web address]
[2019-01-09 10:01] LABS: ABSOLUTE BASOPHILS # (AUTO) 0.1 10^3/uL (0.0-0.2); ABSOLUTE EOSINOPHILS # (AUTO) 0.5 10^3/uL (0.0-0.6); ABSOLUTE LYMPHOCYTES (AUTO) 1.8 10^3/uL (0.5-4.7); ABSOLUTE MONOCYTES (AUTO) 0.5 10^3/uL (0.1-1.4); ABSOLUTE NEUT (AUTO) 5.3 10^3/uL (1.7-8.2); BASOPHILS % (AUTO) 0.7 % (0-2); EOSINOPHILS % (AUTO) 6.4 % (0-6); HEMATOCRIT 43.6 % (37.9-51.0); HEMOGLOBIN 15.2 g/dL (13.5-17.0); LYMPHOCYTES % (AUTO) 22.6 % (13-45); MEAN CORPUSCULAR HEMOGLOBIN 29.7 pg (27.0-33.4); MEAN CORPUSCULAR HGB CONC 34.9 g/dL (32.0-36.0); MEAN CORPUSCULAR VOLUME 85 fl (80-97); MONOCYTES % (AUTO) 5.6 % (3-13); PLATELET COUNT 278 10^3/uL (150-450); RED BLOOD COUNT 5.12 10^6/uL (4.35-5.55); RED CELL DISTRIBUTION WIDTH 13.6 % (11.5-14.0); SEGMENTED NEUTROPHILS % (AUTO) 64.7 % (42-78); TOTAL CELLS COUNTED % (AUTO) 100 %; WHITE BLOOD COUNT 8.2 10^3/uL (4.0-10.5)
[2019-01-09 10:08] LABS: APPEARANCE,URINE CLEAR; BILIRUBIN,URINE NEGATIVE (NEGATIVE); COLOR,URINE YELLOW; GLUCOSE, URINE 50 mg/dL (NEGATIVE); KETONES,URINE NEGATIVE (NEGATIVE); LEUKOCYTE ESTERASE,URINE NEGATIVE (NEGATIVE); NITRITE,URINE NEGATIVE (NEGATIVE); PROTEIN,URINE NEGATIVE (NEGATIVE); URINE SPECIFIC GRAVITY 1.013; UROBILINOGEN,URINE NEGATIVE mg/dL (<2.0)
--- NOTE | 2019-01-09 10:10 | EKG REPORT ---
SEVERITY:- NORMAL ECG - SINUS RHYTHM : Confirmed by: Rosangela Vizcaino 09-Jan-2019 10:09:24
[2019-01-09 10:33] LABS: ANION GAP 12 (5-19); BLOOD UREA NITROGEN 9 mg/dL (7-20); CALCIUM 9.9 mg/dL (8.4-10.2); CARBON DIOXIDE 25 mmol/L (22-30); CHLORIDE 104 mmol/L (98-107); GLUCOSE 204 mg/dL (75-110); POTASSIUM 4.6 mmol/L (3.6-5.0); SODIUM 141.1 mmol/L (137-145)
== END ==
LOC: OD 08:38
PROVIDERS: ATTEND Orthopaedic Surgery
DX: Z01.818 Encounter for other preprocedural examination (principal); E11.9 Type 2 diabetes mellitus without complications
CPT/HCPCS: 36415; 71046; 80048; 81001; 83036; 85025; 93005; 93010

== ENCOUNTER → 2019-03-04 | Outpatient (CLI) | payer MEDICARE, MEDICAID | LOC: OD 09:09 | PROVIDERS: ATTEND Orthopaedic Surgery | DX: Z53.9 Procedure and treatment not carried out, unspecified reason (principal) ==

== ENCOUNTER → 2019-12-16 | Outpatient (CLI) | payer MEDICARE, MEDICAID ==
[2019-12-16 11:06] LABS: ABSOLUTE BASOPHILS # (AUTO) 0.1 10^3/uL (0.0-0.2); ABSOLUTE EOSINOPHILS # (AUTO) 0.3 10^3/uL (0.0-0.6); ABSOLUTE LYMPHOCYTES (AUTO) 1.8 10^3/uL (0.5-4.7); ABSOLUTE MONOCYTES (AUTO) 0.5 10^3/uL (0.1-1.4); ABSOLUTE NEUT (AUTO) 3.8 10^3/uL (1.7-8.2); BASOPHILS % (AUTO) 1.2 % (0-2); EOSINOPHILS % (AUTO) 5.1 % (0-6); HEMATOCRIT 39.3 % (37.9-51.0); HEMOGLOBIN 13.7 g/dL (13.5-17.0); LYMPHOCYTES % (AUTO) 27.2 % (13-45); MEAN CORPUSCULAR HEMOGLOBIN 29.8 pg (27.0-33.4); MEAN CORPUSCULAR HGB CONC 34.7 g/dL (32.0-36.0); MEAN CORPUSCULAR VOLUME 86 fl (80-97); MONOCYTES % (AUTO) 7.6 % (3-13); PLATELET COUNT 348 10^3/uL (150-450); RED BLOOD COUNT 4.58 10^6/uL (4.35-5.55); RED CELL DISTRIBUTION WIDTH 13.3 % (11.5-14.0); SEGMENTED NEUTROPHILS % (AUTO) 58.9 % (42-78); TOTAL CELLS COUNTED % (AUTO) 100 %; WHITE BLOOD COUNT 6.5 10^3/uL (4.0-10.5)
[2019-12-16 11:32] LABS: ANION GAP 10 (5-19); BLOOD UREA NITROGEN 11 mg/dL (7-20); C-REACTIVE PROTEIN 36.5 mg/L (<10.0); CALCIUM 9.9 mg/dL (8.4-10.2); CARBON DIOXIDE 28 mmol/L (22-30); CHLORIDE 98 mmol/L (98-107); GLUCOSE 301 mg/dL (75-110); POTASSIUM 4.7 mmol/L (3.6-5.0)
[2019-12-16 11:58] LABS: ERYTHROCYTE SEDIMENTATION RATE 44 mm/hr (0-20)
== END ==
LOC: OD 09:49
PROVIDERS: ATTEND Orthopaedic Surgery
DX: M25.512 Pain in left shoulder (principal)
CPT/HCPCS: 36415; 80048; 85025; 85652; 86140

== ENCOUNTER → 2019-12-20 | Outpatient (CLI) | payer MEDICARE, MEDICAID ==
--- NOTE | 2019-12-20 13:16 | RADIOLOGY REPORT (SQ) ---
EXAM DESCRIPTION: CHEST PA/LATERAL COMPLETED DATE/TIME: 12/20/2019 1:04 pm REASON FOR STUDY: PREOP COMPARISON: 01/09/2019 EXAM PARAMETERS: NUMBER OF VIEWS: two views TECHNIQUE: Digital Frontal and Lateral radiographic views of the chest acquired. RADIATION DOSE: NA LIMITATIONS: none FINDINGS: LUNGS AND PLEURA: No opacities, masses or pneumothorax. No pleural effusion. MEDIASTINUM AND HILAR STRUCTURES: No masses or contour abnormalities. HEART AND VASCULAR STRUCTURES: Heart normal size. No evidence for failure. BONES: No acute findings. HARDWARE: Total left shoulder arthroplasty. OTHER: No other significant finding. IMPRESSION: 1. NO SIGNIFICANT RADIOGRAPHIC FINDING IN THE CHEST. TECHNICAL DOCUMENTATION: JOB ID: [id number] [employer]- All Rights Reserved Reading location - IP/workstation name: [email or web address]
[2019-12-20 13:27] LABS: APPEARANCE,URINE SLIGHTLY-CLOUDY; BILIRUBIN,URINE NEGATIVE (NEGATIVE); GLUCOSE, URINE 50 mg/dL (NEGATIVE); KETONES,URINE TRACE mg/dL (NEGATIVE); LEUKOCYTE ESTERASE,URINE NEGATIVE (NEGATIVE); NITRITE,URINE NEGATIVE (NEGATIVE); PROTEIN,URINE 30 mg/dL (NEGATIVE); URINE SPECIFIC GRAVITY 1.029
[2019-12-20 13:29] LABS: COLOR,URINE DARK YELLOW
--- NOTE | 2019-12-20 14:51 | EKG REPORT ---
SEVERITY:- BORDERLINE ECG - SINUS RHYTHM PROBABLE LEFT ATRIAL ABNORMALITY BORDERLINE INFERIOR Q WAVES : Confirmed by: Kami Salmeron MD 20-Dec-2019 14:50:10
== END ==
LOC: OD 12:23
PROVIDERS: ATTEND Orthopaedic Surgery
DX: Z01.810 Encounter for preprocedural cardiovascular examination (principal); Z01.811 Encounter for preprocedural respiratory examination; Z01.812 Encounter for preprocedural laboratory examination; E11.9 Type 2 diabetes mellitus without complications
CPT/HCPCS: 36415; 71046; 81001; 83036; 93005; 93010

== ENCOUNTER 2020-01-03 12:00 | Inpatient (IN) | payer MEDICARE, MEDICAID ==
[~2020-01-03 12:00] MED LIST changes: +CEFAZOLIN INJ 1 GM VIAL IV PRN; -LANSOPRAZOLE 15 MG TAB.RAP.DR PO PRN; -ONDANSETRON HCL INJ/PF 4 MG/2 ML SDV IV PRN; +PANTOPRAZOLE SODIUM 20 MG TABLET.DR PO PRN; -TRANEXAMIC ACID INJ/PF 1,000 MG/10 ML SDV IV PRN
[2020-01-10] MEDS ORDERED: IBUPROFEN 800 MG in NORMAL SALINE 250 ML IV PRN (05:00)
[2020-01-10] MEDS ORDERED: LIDOCAINE 0.5% INJ-PF (5 MG/ML) 50 ML SDV SUBCUT PRN (05:00)
[2020-01-10] MEDS ORDERED: LACTATED RINGERS 1000 ML IV PRN (05:00)
[2020-01-10] MEDS ORDERED: CEFAZOLIN INJ 1 GM VIAL IV PRN (05:00)
[2020-01-10] MEDS ORDERED: VANCOMYCIN HCL 1,000 MG in DEXTROSE 5%-WATER 250 ML IV PRN (05:00)
[2020-01-10] MEDS ORDERED: OXYCODONE HCL SR 10 MG TABLET PO ONE (05:19)
[2020-01-10] MEDS ORDERED: PANTOPRAZOLE SODIUM 20 MG TABLET.DR PO ONE (05:19)
[2020-01-10] MEDS ORDERED: SUCCINYLCHOLINE CHLORIDE INJ 200 MG/10 ML VIAL ONE (10:19)
[2020-01-10] MEDS ORDERED: ROCURONIUM BROMIDE INJ 50 MG/5 ML VIAL IV ONE (10:19)
[2020-01-10] MEDS ORDERED: NEOSTIGMINE METHYLSULFATE 10 MG/10 ML VIAL ONE (10:19)
[2020-01-10] MEDS ORDERED: GLYCOPYRROLATE 1 MG/5 ML VIAL ONE (10:19)
[2020-01-10] MEDS ORDERED: PHENYLEPHRINE HCL INJ/PF 10 MG/1 ML SDV ONE (10:19)
[2020-01-10] MEDS ORDERED: FAMOTIDINE INJ/PF 20 MG/2 ML SDV IV ONE (10:34)
[2020-01-10] MEDS ORDERED: METOCLOPRAMIDE HCL INJ/PF 10 MG/2 ML SDV ONE (10:34)
[2020-01-10] MEDS ORDERED: BUPIVACAINE HCL 0.5 % INJ/PF 30 ML SDV ONE (11:33)
[2020-01-10] MEDS ORDERED: FENTANYL CITRATE INJ/PF 100 MCG/2 ML AMPUL ONE (11:33)
[2020-01-10] MEDS ORDERED: PROPOFOL INJ 200 MG/20 ML VIAL IV ONE (11:34)
[2020-01-10] MEDS ORDERED: TRANEXAMIC ACID INJ/PF 1,000 MG/10 ML SDV ONE (11:34)
[2020-01-10] MEDS ORDERED: MIDAZOLAM 2 MG/2 ML INJ ONE (11:34)
[2020-01-10] MEDS ORDERED: BUPIVACAINE HCL 0.5%-EPI 1:200000 INJ/PF 30 ML VIAL ONE (11:38)
[2020-01-10] MEDS ORDERED: HYDROMORPHONE HCL INJ/PF 2 MG/ML AMPULE ONE (11:43)
[2020-01-10] MEDS ORDERED: MEPERIDINE HCL/PF INJ 25 MG/1 ML DISP.SYRIN IV PRN (12:34)
[2020-01-10] MEDS ORDERED: FENTANYL CITRATE INJ/PF 100 MCG/2 ML AMPUL IV PRN ×5 (12:34→15:47)
[2020-01-10] MEDS ORDERED: PROMETHAZINE HCL INJ 25 MG/1 ML VIAL IV PRN ×2 (12:34)
[2020-01-10] MEDS ORDERED: DIPHENHYDRAMINE HCL 50 MG/ML VIAL IV PRN (12:34)
[2020-01-10] MEDS ORDERED: MORPHINE SULFATE 10 MG/ML INJ IV PRN (12:34)
[2020-01-10] MEDS ORDERED: VANCOMYCIN HCL INJ 1000 MG VIAL ONE (14:21)
[2020-01-10] MEDS ORDERED: BUPIVACAINE INJ/PF LIPOSOME/PF 266 MG/20 ML SDV ONE (14:33)
--- NOTE | 2020-01-10 14:40 | Discharge Summary ---
Discharge Summary (SDC) - Discharge Final Diagnosis: Mechanical complication left shoulder arthroplasty Date of Surgery: 01/10/20 Discharge Date: 01/10/20 Condition: Good Treatment or Instructions: Limited elevation of left upper extremity. Prescriptions: Oxycodone HCl/Acetaminophen [Percocet 5-325 mg Tablet] 1 tab PO Q6 PRN #40 tab PRN Reason: Referrals: NAHUN BEYER MD [Primary Care Provider] - Discharge Diet: Regular Respiratory Treatments at Home: Deep Breathing/Coughing Discharge Activity: Balance Activity w/Rest, No tub bath Home Care Assistance: None Needed Report the Following to Your Physician Immediately: Shortness of Breath, Fever over 101 Degrees, Drainage-Foul Smelling
--- NOTE | 2020-01-10 14:46 | Operative Report ---
Operative Report DATE OF SURGERY: 01/10/20 PREOPERATIVE DIAGNOSIS: Mechanical complication left shoulder arthroplasty OPERATION: Vision left shoulder arthroplasty SURGEON: HERNAN ROSEN 1ST BUS CLEANER: AJ JONES ANESTHESIA: GA TISSUE REMOVED OR ALTERED: Cultures x2 to microbiology. Removed implants to CSS ESTIMATED BLOOD LOSS: 75 INTRAOPERATIVE FINDINGS: Implants used: Cheri reunion shoulder system. 40 Millimeter concentric glenosphere. 40 mm humeral cup 4 mm thickness. 40 mm X3 humeral insert thickness 4 mm. Glenoid baseplate, 28 mm. Tricortical iliac crest lyophilized bone graft. V toss bone substitute PROCEDURE: With the patient in the beachchair position on the operative table the left upper extremity and forequarter prepped and draped in a sterile fashion. A standard deltopectoral approach to the shoulder is taken. Upon entering the capsule a modest amount of serosanguineous fluid is encountered and this is sent for culture and sensitivity. The shoulder is exposed. Is clear that the glenosphere and the baseplate are loose. The humeral cup was removed from the stem using a tuning fork type tool in the glenoid and the baseplate are easily removed. The glenoid is exposed and there is a bone defect which is uncontained and proximal and posterior presumably between approxi-12:00 and 2:00 on the face of the dial. This defect is filled with a tricortical lyophilized allograft which is impacted into the defect and then V toss bone graft substitute is placed around this allograft to smooth the glenoid surface. A 28 mm glenoid baseplate is then placed with the central screw and 3 peripheral screws into [place] bone. The fourth peripheral screw was not placed because this would be into the defect. The humeral stem was then exposed. A trial reduction performed with a 40 mm concentric glenosphere trial and a 40 mm humeral insert with 4 mm thickness. This represents in a relatively loose fit with a full range of motion and no clear instability. A decision was made to proceed with this construct. The trial implants were removed. The wound bed is copiously irrigated with pulse lavage containing normal saline and Betadine. The glenosphere is impacted onto the baseplate. The 40 mm humeral cup is impacted into the stem. The 40 mm X3 insert is impacted into the humeral cup. The shoulder is reduced. Is again irrigated with pulse lavage. Powdered vancomycin was placed into the wound. The wound is then closed in layers used of the Vicryl followed by shawn. A st erile compressive dressing and shoulder immobilizer applied and the patient is returned to the PACU in satisfactory condition.
[2020-01-10] MEDS ORDERED: LIDOCAINE 2% INJ (20 MG/ML) 20 ML MDV ONE (16:23)
--- NOTE | 2020-01-10 16:23 | RADIOLOGY REPORT (SQ) ---
EXAM DESCRIPTION: SHOULDER LEFT 2 OR MORE VIEWS COMPLETED DATE/TIME: 01/10/2020 3:55 pm REASON FOR STUDY: Post op COMPARISON: 09/19/2016, TECHNIQUE: Three views of left shoulder were submitted. LIMITATIONS: None. FINDINGS: Patient is status post total left shoulder arthroplasty revision. No unexpected findings. Please refer to the operative report for further discussion. IMPRESSION: Postsurgical changes as described. No unexpected findings. TECHNICAL DOCUMENTATION: JOB ID: [id number] [employer]- All Rights Reserved Reading location - IP/workstation name: [email or web address]
[2020-01-10] MEDS ORDERED: LIDOCAINE 1%/EPINEPHRINE INJ 20 ML VIAL ONE ×2 (16:24→16:26)
[2020-01-10] MEDS ORDERED: ROPIVACAINE HCL 0.5% INJ/PF (5 MG/1 ML) 30 ML SDV ONE (16:24)
[2020-01-10] MEDS ORDERED: DEXAMETHASONE SOD PHOS INJ 10 MG/1 ML VIAL ONE (17:49)
[2020-01-10 18:48] VITALS: BP 152/86
[2020-01-12] MEDS ORDERED: OXYCODONE HCL SR 10 MG TABLET PO PRN (05:00)
[2020-01-12] MEDS ORDERED: PANTOPRAZOLE SODIUM 20 MG TABLET.DR PO PRN (05:00)
[2020-01-12] MEDS ORDERED: BUPIVACAINE INJ/PF LIPOSOME/PF 266 MG/20 ML SDV INJ PRN (05:00)
== END 2020-01-10 20:15 | disposition home or self-care (01) | DRG 483 ==
LOC: EDSTATUS 12:00 → INOR 01-10 09:56 → 4S 01-10 18:33
PROVIDERS: ADMIT Orthopaedic Surgery; ATTEND Orthopaedic Surgery
PROC: 0RPK0JZ Removal of Synthetic Substitute from Left Shoulder Joint, Open Approach (ICD-10-PCS; 2020-01-10)
PROC: 0RRK0JZ Replacement of Left Shoulder Joint with Synthetic Substitute, Open Approach (ICD-10-PCS; principal; 2020-01-10 12:00)
DX: T84.038A Mechanical loosening of other internal prosthetic joint, initial encounter (principal); E11.9 Type 2 diabetes mellitus without complications; I10 Essential (primary) hypertension; Y83.1 Surgical operation with implant of artificial internal device as the cause of abnormal reaction of the patient, or of later complication, without mention of misadventure at the time of the procedure; Z96.612 Presence of left artificial shoulder joint; Z79.899 Other long term (current) drug therapy; Z87.891 Personal history of nicotine dependence
CPT/HCPCS: 01638; 36415; 82947; 82962; 83036; 86850; 86900; 86901; 87070; 87075; 87205; C9290; J0330; J1100; J1170; J1741; J2250; J2370; J2704; J2710; J2765; J2795; J3010; J3370; J3490; J7050; J7060; S0028

== ENCOUNTER 2020-03-18 11:33 | Emergency (ER) | payer MEDICARE, MEDICAID ==
--- NOTE | 2020-03-18 11:54 | ER Document Report ---
ED Medical Screen (RME) - General Chief Complaint: Shoulder Pain Stated Complaint: LEFT SHOULDER PAIN Time Seen by Provider: 03/18/20 11:48 Primary Care Provider: NAHUN BEYER MD [Primary Care Provider] - Follow up as needed Information source: Patient Notes: Patient presents complaining of left shoulder joint pain with redness and swelling over the incision site from the previous shoulder joint replacement surgery. Patient states he had his third shoulder joint replacement performed in December of this year by Dr. Malin. Patient states that the scars appear to be wider today with redness. Patient reports some increased pain to the joint as well. Patient does have a history of diabetes. Patient states blood sugars have been stable. I have greeted and performed a rapid initial assessment of this patient. A comprehensive ED assessment and evaluation of the patient, analysis of test results and completion of the medical decision making process will be conducted by additional ED providers. TRAVEL OUTSIDE OF THE [place] IN LAST 30 DAYS: No - Related Data Allergies/Adverse Reactions: monosodium glutamate Allergy (Severe, Verified 01/10/20 11:13) VOMITING; HEADACHES Past Medical History - Past Medical History Cardiac Medical History: Reports: Hx Hypertension Denies: Hx Atrial Fibrillation, Hx Congestive Heart Failure, Hx Coronary Artery Disease, Hx Heart Attack, Hx Hypercholesterolemia, Hx Peripheral Vascular Disease, Hx Pulmonary Embolism, Hx Heart Murmur Pulmonary Medical History: Reports: Hx Pneumonia Denies: Hx Asthma, Hx Bronchitis, Hx COPD, Hx Respiratory Failure, Hx Sleep Apnea, Hx Tuberculosis Neurological Medical History: Denies: Hx Cerebrovascular Accident, Hx Seizures Endocrine Medical History: Reports: Hx Diabetes Mellitus Type 2. Denies: Hx Graves' Disease, Hx Hyperthyroidism, Hx Hypothyroidism Renal/ Medical History: Reports: Hx Kidney Stones - 10 yrs ago. Denies: Hx Benign Prostatic Hyperplasia, Hx End Stage Renal Disease, Hx Peritoneal Dialysis Malignancy Medical History: Denies Hx Lung Cancer GI Medical History: Denies: Hx Crohn's Disease, Hx Gastroesophageal Reflux Disease, Hx Hiatal Hernia, Hx Irritable Bowel, Hx Liver Failure, Hx Pancreatitis, Hx Ulcer Musculoskeltal Medical History: Reports Hx Arthritis, Denies Hx Fibromyalgia, Denies Hx Muscular Dystrophy, Denies Hx Systemic Lupus Erythematosus Psychiatric Medical History: Denies: Hx Bipolar Disorder, Hx Depression, Hx Post Traumatic Stress Disorder Traumatic Medical History: Denies: Hx Fractures Past Surgical History: Reports: Hx Cholecystectomy, Hx Orthopedic Surgery - left shoulderx5, left kneex20, Hx Tonsillectomy. Denies: Hx Appendectomy, Hx Bowel Surgery, Hx Colostomy, Hx Coronary Artery Bypass Graft, Hx Gastric Bypass Surgery, Hx Herniorrhaphy, Hx Pacemaker - Immunizations Hx Diphtheria, Pertussis, Tetanus Vaccination: Yes Physical Exam - Vital signs Vitals: Temp Pulse Resp BP Pulse Ox 98.9 F 104 H 20 165/101 H 98 03/18/20 11:38 03/18/20 11:38 03/18/20 11:38 03/18/20 11:38 03/18/20 11:38 - General General appearance: Appears well, Alert Notes: Swelling overlying scars from previous shoulder joint replacement surgery, erythema to the scar with fluctuance Course - Vital Signs Vital signs: Temp Pulse Resp BP Pulse Ox 98.9 F 104 H 20 165/101 H 98 03/18/20 11:38 03/18/20 11:38 03/18/20 11:38 03/18/20 11:38 03/18/20 11:38 Doctor's Discharge - Discharge Referrals: NAHUN BEYER MD [Primary Care Provider] - Follow up as needed
[2020-03-18 12:16] LABS: ABSOLUTE BASOPHILS # (AUTO) 0.1 10^3/uL (0.0-0.2); ABSOLUTE EOSINOPHILS # (AUTO) 0.3 10^3/uL (0.0-0.6); ABSOLUTE LYMPHOCYTES (AUTO) 2.5 10^3/uL (0.5-4.7); ABSOLUTE MONOCYTES (AUTO) 0.6 10^3/uL (0.1-1.4); ABSOLUTE NEUT (AUTO) 9.1 10^3/uL (1.7-8.2); BASOPHILS % (AUTO) 1.1 % (0-2); EOSINOPHILS % (AUTO) 2.4 % (0-6); HEMATOCRIT 39.4 % (37.9-51.0); HEMOGLOBIN 13.6 g/dL (13.5-17.0); LYMPHOCYTES % (AUTO) 19.6 % (13-45); MEAN CORPUSCULAR HEMOGLOBIN 28.3 pg (27.0-33.4); MEAN CORPUSCULAR HGB CONC 34.5 g/dL (32.0-36.0); MEAN CORPUSCULAR VOLUME 82 fl (80-97); MONOCYTES % (AUTO) 5.1 % (3-13); PLATELET COUNT 526 10^3/uL (150-450); RED CELL DISTRIBUTION WIDTH 13.5 % (11.5-14.0); SEGMENTED NEUTROPHILS % (AUTO) 71.8 % (42-78); TOTAL CELLS COUNTED % (AUTO) 100 %; WHITE BLOOD COUNT 12.6 10^3/uL (4.0-10.5)
[2020-03-18 12:30] LABS: ALBUMIN 4.2 g/dL (3.5-5.0); ALKALINE PHOSPHATASE 119 U/L (38-126); ANION GAP 13 (5-19); ASPARTATE AMINO TRANSFERASE 15 U/L (17-59); BILIRUBIN,DIRECT 0.1 mg/dL (0.0-0.4); BILIRUBIN,TOTAL 0.4 mg/dL (0.2-1.3); BLOOD UREA NITROGEN 16 mg/dL (7-20); CALCIUM 9.9 mg/dL (8.4-10.2); CARBON DIOXIDE 25 mmol/L (22-30); CHLORIDE 95 mmol/L (98-107); POTASSIUM 4.6 mmol/L (3.6-5.0); TOTAL PROTEIN 7.7 g/dL (6.3-8.2)
--- NOTE | 2020-03-18 12:36 | RADIOLOGY REPORT (SQ) ---
EXAM DESCRIPTION: SHOULDER LEFT 2 OR MORE VIEWS IMAGES COMPLETED DATE/TIME: 03/18/2020 12:19 pm REASON FOR STUDY: pain, redness, swelling COMPARISON: 01/10/2020 NUMBER OF VIEWS: Three views. TECHNIQUE: Internal rotation, external rotation, and Y view images acquired of the left shoulder. LIMITATIONS: Patient positioning FINDINGS: MINERALIZATION: Decreased. BONES: Postsurgical changes from the reverse left shoulder arthroplasty. Unchanged inferior subluxat ion of the humerus in relation to the glenoid component. No acute bony abnormality identified. Post surgical/traumatic changes at the glenoid and distal clavicle with dysmorphic appearance. Ossific densities inferior to the glenoid, possibly heterotopic ossification versus postsurgical debris. JOINTS: Unchanged inferior subluxation of the humeral component relation to the glenoid. No definiti ve dislocation. VISUALIZED LUNGS AND RIBS: No pneumothorax. No rib fracture. SOFT TISSUES: No radiopaque foreign body. OTHER: No other significant finding. IMPRESSION: Stable postsurgical changes from the left reverse shoulder arthroplasty. No definite ac [place] bony abnormality. Unchanged increased subacromial space and inferior subluxation of the humeral component which may be related to postsurgical change or joint effusion. TECHNICAL DOCUMENTATION: JOB ID: [id number] 2010 [employer]- All Rights Reserved Reading location - IP/workstation name: [email or web address]
[2020-03-18 12:38] LABS: GLUCOSE 446 mg/dL (75-110)
[2020-03-18 13:30] VITALS: BP 138/84
[2020-03-18] MEDS ORDERED: HYDROCODONE/ACETAMINOPHEN 5-325 MG TABLET PO ONE (14:43)
--- NOTE | 2020-03-18 14:47 | RADIOLOGY REPORT (SQ) ---
EXAM DESCRIPTION: U/S EXTREMITY NONVASCULAR LTD IMAGES COMPLETED DATE/TIME: 03/18/2020 2:29 pm REASON FOR STUDY: L shoulder, eval for abscess COMPARISON: Same day radiograph. TECHNIQUE: Dynamic and static grayscale images acquired of the localized site of clinical concern an d recorded on PACS. Additional selected color Doppler and spectral images recorded. SITE OF CONCERN: Left shoulder LIMITATIONS: None. FINDINGS: SKIN AND SUBCUTANEOUS TISSUES: Complex hypoechoic collection with internal debris noted wi thin the subcutaneous tissues of the left shoulder measuring approximately 6.1 x 7.0 x 2.3 cm. No in ternal vascularity. DEEP SOFT TISSUES/MUSCLES: As above. VASCULAR: Nonvisualized. OTHER: No other significant finding. IMPRESSION: Complex hypoechoic collection along the left shoulder measuring 6.1 x 7.0 x 2.3 cm susy tible with abscess. TECHNICAL DOCUMENTATION: JOB ID: [id number] 2010 [employer]- All Rights Reserved Reading location - IP/workstation name: [email or web address]
--- NOTE | 2020-03-18 15:00 | ER Document Report ---
HPI - HPI Time Seen by Provider: 03/18/20 11:48 Pain Level: 3 Notes: Patient is a 54-year-old male presenting to the emergency department with concern for possible abscess to his left shoulder. Patient reports he had 3 shoulder replacement surgeries with the most recent being done this past December. Patient reports things were going fine, the area was healing well until about 3 days ago when he started having increasing erythema, swelling and pain to the area. He states there is now a large mushy area that he is concerned is infected. He denies running any fevers but does report occasional chills. - REPRODUCTIVE Reproductive: DENIES: : - MUSCULOSKELETAL Musculoskeletal: REPORTS: Extremity pain - left shoulder Past Medical History - General Information source: Patient - Social History Smoking Status: Current Some Day Smoker Chew tobacco use (# tins/day): No Frequency of alcohol use: None Drug Abuse: None Family History: Reviewed & Not Pertinent Patient has homicidal ideation: No - Past Medical History Cardiac Medical History: Reports: Hx Hypertension Denies: Hx Atrial Fibrillation, Hx Congestive Heart Failure, Hx Coronary Artery Disease, Hx Heart Attack, Hx Hypercholesterolemia, Hx Peripheral Vascular Disease, Hx Pulmonary Embolism, Hx Heart Murmur Pulmonary Medical History: Reports: Hx Pneumonia Denies: Hx Asthma, Hx Bronchitis, Hx COPD, Hx Respiratory Failure, Hx Sleep Apnea, Hx Tuberculosis Neurological Medical History: Denies: Hx Cerebrovascular Accident, Hx Seizures Endocrine Medical History: Reports: Hx Diabetes Mellitus Type 2. Denies: Hx Graves' Disease, Hx Hyperthyroidism, Hx Hypothyroidism Renal/ Medical History: Reports: Hx Kidney Stones - 10 yrs ago. Denies: Hx B enign Prostatic Hyperplasia, Hx End Stage Renal Disease, Hx Peritoneal Dialysis Malignancy Medical History: Denies Hx Lung Cancer GI Medical History: Denies: Hx Crohn's Disease, Hx Gastroesophageal Reflux Disease, Hx Hiatal Hernia, Hx Irritable Bowel, Hx Liver Failure, Hx Pancreatitis, Hx Ulcer Musculoskeletal Medical History: Reports Hx Arthritis, Denies Hx Fibromyalgia, Denies Hx Muscular Dystrophy, Denies Hx Systemic Lupus Erythematosus Psychiatric Medical History: Denies: Hx Bipolar Disorder, Hx Depression, Hx Post Traumatic Stress Disorder Traumatic Medical History: Denies: Hx Fractures Past Surgical History: Reports: Hx Cholecystectomy, Hx Orthopedic Surgery - left shoulderx5, left kneex20, Hx Tonsillectomy. Denies: Hx Appendectomy, Hx Bowel Surgery, Hx Colostomy, Hx Coronary Artery Bypass Graft, Hx Gastric Bypass Surgery, Hx Herniorrhaphy, Hx Pacemaker - Immunizations Hx Diphtheria, Pertussis, Tetanus Vaccination: Yes Vertical Provider Document - CONSTITUTIONAL Notes: PHYSICAL EXAMINATION: GENERAL: Well-appearing, well-nourished and in no acute distress. HEAD: Atraumatic, normocephalic. EYES: Pupils equal round extraocular movements intact, conjunctiva are normal. ENT: Nares patent NECK: Normal range of motion LUNGS: No respiratory distress Musculoskeletal: Normal range of motion, area of erythema with induration and fluctuance noted to the anterior left shoulder over the old surgical incision. NEUROLOGICAL: Normal speech, normal gait. PSYCH: Normal mood, normal affect. SKIN: Warm, Dry, normal turgor, no rashes or lesions noted. - INFECTION CONTROL TRAVEL OUTSIDE OF THE [place] IN LAST 30 DAYS: No Course - Re-evaluation Re-evalutation: Laboratory 03/18/20 03/18/20 12:00 12:00 WBC 12.6 H RBC 4.80 Hgb 13.6 Hct 39.4 MCV 82 MCH 28.3 MCHC 34.5 RDW 13.5 Plt Count 526 H Lymph % (Auto) 19.6 [place] % (Auto) 5.1 Eos % (Auto) 2.4 Baso % (Auto) 1.1 Absolute Neuts (auto) 9.1 H Absolute Lymphs (auto) 2.5 Absolute Monos (auto) 0.6 Absolute Eos (auto) 0.3 Absolute Basos (auto) 0.1 Seg Neutrophils % 71.8 Sodium 133.1 L Potassium 4.6 Chloride 95 L Carbon Dioxide 25 Anion Gap 13 BUN 16 Creatinine 0.56 Est GFR ( Amer) > 60 Est GFR (MDRD) Non-Af > 60 Glucose 446 H* Calcium 9.9 Total Bilirubin 0.4 Direct Bilirubin 0.1 Neonat Total Bilirubin Not Reportable Neonat Direct Bilirubin Not Reportable Neonat Indirect Bili Not Reportable AST 15 L ALT 15 Alkaline Phosphatase 119 Total Protein 7.7 Albumin 4.2 Shoulder X-Ray 03/18/20 11:52 IMPRESSION: Stable postsurgical changes from the left reverse shoulder arthroplasty. No definite acute bony abnormality. Unchanged increased subacromial space and inferior subluxation of the humeral component which may be related to postsurgical change or joint effusion. Extremity Ultrasound 03/18/20 13:00 IMPRESSION: Complex hypoechoic collection along the left shoulder measuring 6.1 x 7.0 x 2.3 cm compatible with abscess. 03/18/20 15:00 Called and spoke with Dr. Roesn, patient's surgeon. He would like to see the patient in the office tomorrow morning. He advised to hold off on any antib iotics until he can get cultures tomorrow. - Vital Signs Vital signs: Temp Pulse Resp BP Pulse Ox 98.9 F 104 H 18 138/84 H 99 03/18/20 11:52 03/18/20 11:38 03/18/20 14:09 03/18/20 13:00 03/18/20 14:09 - Laboratory Result Diagrams: 03/18/20 12:00 03/18/20 12:00 Laboratory results interpreted by me: 03/18/20 03/18/20 12:00 12:00 WBC 12.6 H Plt Count 526 H Absolute Neuts (auto) 9.1 H Sodium 133.1 L Chloride 95 L Glucose 446 H* AST 15 L Discharge - Discharge Clinical Impression: Shoulder abscess Condition: Stable Disposition: HOME, SELF-CARE Additional Instructions: I called and spoke with Dr. Rosen, he would like to see you in the office tomorrow morning. Please call their office as soon as you leave here let them know that Dr. Rosen wants to see you tomorrow. Continue to take your pain medication as prescribed. We are not starting you on antibiotics as it would be best to get cultures from the area prior to the start of antibiotics. Referrals: HERNAN ROSEN MD [ACTIVE STAFF] - Follow up as needed
== END 2020-03-18 15:19 | disposition home or self-care (01) ==
LOC: ER 11:33
DX: L02.419 Cutaneous abscess of limb, unspecified (principal); M25.512 Pain in left shoulder; Z96.612 Presence of left artificial shoulder joint; F17.200 Nicotine dependence, unspecified, uncomplicated; I10 Essential (primary) hypertension; E11.9 Type 2 diabetes mellitus without complications
CPT/HCPCS: 99284; 36415; 87040; 85025; 80053; 73030; 76882; A9270

== ENCOUNTER 2020-03-23 09:49 | Day surgery (SDC) | payer MEDICARE, MEDICAID ==
[~2020-03-23 09:49] MED LIST changes: -BUPIVACAINE INJ/PF LIPOSOME/PF 266 MG/20 ML SDV INJ PRN; -CEFAZOLIN INJ 1 GM VIAL IV PRN; +DEXAMETHASONE SOD PHOSPHATE INJ 4 MG/1 ML VIAL ONE; +FENTANYL CITRATE INJ/PF 100 MCG/2 ML AMPUL ONE; -IBUPROFEN 800 MG in NORMAL SALINE 250 ML IV PRN; -LACTATED RINGERS 1000 ML IV PRN; -LIDOCAINE 0.5% INJ-PF (5 MG/ML) 50 ML SDV SUBCUT PRN; +MIDAZOLAM 2 MG/2 ML INJ ONE; +ONDANSETRON HCL INJ/PF 4 MG/2 ML SDV ONE; -OXYCODONE HCL SR 10 MG TABLET PO PRN; -PANTOPRAZOLE SODIUM 20 MG TABLET.DR PO PRN; +PROPOFOL INJ 200 MG/20 ML VIAL IV ONE; -VANCOMYCIN HCL 1,000 MG in DEXTROSE 5%-WATER 250 ML IV PRN
[2020-03-23 10:35] LABS: ABSOLUTE BASOPHILS # (AUTO) 0.1 10^3/uL (0.0-0.2); ABSOLUTE EOSINOPHILS # (AUTO) 0.3 10^3/uL (0.0-0.6); ABSOLUTE MONOCYTES (AUTO) 0.5 10^3/uL (0.1-1.4); ABSOLUTE NEUT (AUTO) 6.4 10^3/uL (1.7-8.2); BASOPHILS % (AUTO) 0.7 % (0-2); EOSINOPHILS % (AUTO) 3.6 % (0-6); HEMOGLOBIN 13.6 g/dL (13.5-17.0); LYMPHOCYTES % (AUTO) 21.3 % (13-45); MEAN CORPUSCULAR HEMOGLOBIN 28.1 pg (27.0-33.4); MEAN CORPUSCULAR HGB CONC 34.7 g/dL (32.0-36.0); MEAN CORPUSCULAR VOLUME 81 fl (80-97); MONOCYTES % (AUTO) 5.7 % (3-13); PLATELET COUNT 446 10^3/uL (150-450); RED BLOOD COUNT 4.82 10^6/uL (4.35-5.55); RED CELL DISTRIBUTION WIDTH 13.6 % (11.5-14.0); SEGMENTED NEUTROPHILS % (AUTO) 68.7 % (42-78); TOTAL CELLS COUNTED % (AUTO) 100 %; WHITE BLOOD COUNT 9.3 10^3/uL (4.0-10.5)
[2020-03-23 10:49] VITALS: BP 154/88
[2020-03-23 10:56] LABS: APPEARANCE,URINE CLEAR; BILIRUBIN,URINE NEGATIVE (NEGATIVE); COLOR,URINE YELLOW; GLUCOSE, URINE >=500 mg/dL (NEGATIVE); KETONES,URINE NEGATIVE (NEGATIVE); LEUKOCYTE ESTERASE,URINE NEGATIVE (NEGATIVE); NITRITE,URINE NEGATIVE (NEGATIVE); PROTEIN,URINE 30 mg/dL (NEGATIVE); URINE SPECIFIC GRAVITY 1.025; UROBILINOGEN,URINE NEGATIVE mg/dL (<2.0)
[2020-03-23 11:01] LABS: ANION GAP 9 (5-19); BLOOD UREA NITROGEN 15 mg/dL (7-20); CALCIUM 9.9 mg/dL (8.4-10.2); CARBON DIOXIDE 25 mmol/L (22-30); CHLORIDE 98 mmol/L (98-107); GLUCOSE 329 mg/dL (75-110); POTASSIUM 4.9 mmol/L (3.6-5.0)
[2020-03-23] MEDS ORDERED: INSULIN REG, HUMAN 100 UNIT/ML 3 ML VIAL (PYX) ONE (11:14)
== END 2020-03-23 13:45 | disposition home or self-care (01) ==
LOC: OROUT 09:49
PROVIDERS: ATTEND Orthopaedic Surgery
DX: Z03.818 Encounter for observation for suspected exposure to other biological agents ruled out (principal); R73.9 Hyperglycemia, unspecified; Z96.612 Presence of left artificial shoulder joint; Z79.01 Long term (current) use of anticoagulants; Z53.20 Procedure and treatment not carried out because of patient's decision for unspecified reasons
CPT/HCPCS: 36415; 82962; 85025; 80048; 81001; U0003; A9270; 87635; J1100; J1815; J2250; J2405; J2704; J3010

== ENCOUNTER 2020-03-31 08:32 | Inpatient (IN) | payer MEDICARE, MEDICAID ==
[~2020-03-31 08:32] MED LIST changes: -DEXAMETHASONE SOD PHOSPHATE INJ 4 MG/1 ML VIAL ONE; -FENTANYL CITRATE INJ/PF 100 MCG/2 ML AMPUL ONE; +METOCLOPRAMIDE HCL INJ/PF 10 MG/2 ML SDV ONE; -MIDAZOLAM 2 MG/2 ML INJ ONE; +PHENYLEPHRINE HCL INJ/PF 10 MG/1 ML SDV ONE; -PROPOFOL INJ 200 MG/20 ML VIAL IV ONE; +ROCURONIUM BROMIDE INJ 50 MG/5 ML VIAL IV ONE
[2020-03-31] MEDS ORDERED: BUPIVACAINE HCL 0.25 % INJ/PF (2.5 MG/1 ML) 30 ML VIAL ONE (12:02)
[2020-03-31] MEDS ORDERED: HYDROMORPHONE HCL INJ/PF 2 MG/ML AMPULE ONE (12:25)
[2020-03-31] MEDS ORDERED: MIDAZOLAM 2 MG/2 ML INJ ONE (12:25)
[2020-03-31] MEDS ORDERED: FENTANYL CITRATE INJ/PF 100 MCG/2 ML AMPUL ONE (12:25)
[2020-03-31] MEDS ORDERED: PROPOFOL INJ 200 MG/20 ML VIAL IV ONE (12:26)
[2020-03-31] MEDS ORDERED: VANCOMYCIN HCL INJ 1000 MG VIAL ONE (12:32)
[2020-03-31] MEDS ORDERED: BUPIVACAINE INJ/PF LIPOSOME/PF 266 MG/20 ML SDV ONE (12:32)
[2020-03-31] MEDS ORDERED: PROPOFOL 0 MG/0 ML INFUS..BTL IV ONE (12:43)
[2020-03-31] MEDS ORDERED: CEFAZOLIN INJ 1 GM VIAL ONE (13:51)
[2020-03-31] MEDS ORDERED: PROMETHAZINE HCL INJ 25 MG/1 ML VIAL IV PRN ×2 (13:53)
[2020-03-31] MEDS ORDERED: FENTANYL CITRATE INJ/PF 100 MCG/2 ML AMPUL IV PRN ×3 (13:53)
[2020-03-31] MEDS ORDERED: MEPERIDINE HCL/PF INJ 25 MG/1 ML DISP.SYRIN IV PRN (13:53)
[2020-03-31] MEDS ORDERED: OXYCODONE-ACETAMINOPHEN 5-325 MG TABLET PO PRN ×2 (13:53)
[2020-03-31] MEDS ORDERED: ONDANSETRON HCL INJ/PF 4 MG/2 ML SDV IV PRN (13:53)
[2020-03-31] MEDS ORDERED: DIPHENHYDRAMINE HCL 50 MG/ML VIAL IV PRN (13:53)
--- NOTE | 2020-03-31 14:52 | Operative Report ---
Operative Report DATE OF SURGERY: 03/31/20 PREOPERATIVE DIAGNOSIS: Left shoulder periprosthetic infection POSTOPERATIVE DIAGNOSIS: Same OPERATION: Irrigation and excisional debridement left shoulder SURGEON: AJ JONES ANESTHESIA: GA TISSUE REMOVED OR ALTERED: Culture sent for aerobic, anaerobic, AFB and fungal COMPLICATIONS: None ESTIMATED BLOOD LOSS: 200cc PROCEDURE: Indication for above procedure: 54-year-old male with longstanding history of left shoulder issues. Patient has underwent multiple revisions most recently revision reverse total shoulder which is his third total shoulder arthroplasty performed unfortunately patient developed redness swelling and drainage. He was initially set up for operative intervention on 03/23/2020 but left AMA from the preoperative holding area. Patient subsequently followed up in my office at which point we discussed treatment options and decision was made to proceed with irrigation and debridement with polyethylene exchange as was previously planned. Procedure In Detail: Patient was seen and evaluated in the preoperative holding area. The LEFT upper extremity was initialized and marked. Antibiotics held until cultures then patient received 2 g of Ancef. Patient received preoperative regional block in the holding area. Patient was taken back to the operative room where transferred to the operative table and placed under general anesthesia. Once they were adequately anesthetized patient placed in the beachchair position. Cervical spine was placed in neutral position all bony prominences were padded including nonoperative upper extremity and bilateral lower extremity. A surgical team debriefing was performed ensuring all instrumentation was available, the surgical procedure was discussed with possible concerns reviewed. The upper extremity was prepped with ChloraPrep draped in a sterile fashion. A timeout was done identifying correct patient, procedure and extremity everyone in attendance agree with this and verbalized no concerns. Previous incision was utilized. Purulence was encountered superficially. Superficial cultures were then obtained sent for aerobic, anaerobic, AFB and fungal culture. Superficial aspect of the wound was copiously irrigated nonviable tissue was excised. There was no evidence of sinus track tunneling deep to the fascia or the deltopectoral interval to suggest deep periprosthetic infection. The deltopectoral interval was opened along the midportion but not proximally and distally with finger dissection I was unable to palpate deep sinus tract or area of fluid pocket or abscess. Thus decision was made to avoid opening the joint capsule which could possibly seed the prosthetic joint. Vladimir tional deep culture was obtained just below the fascia of the deltopectoral interval. Wound was copiously irrigated with normal saline and nonviable tissue was excised. Any peripheral bleeding was controlled with bipolar cautery. Large tributary of the cephalic vein was tied off due to bleeding. Once the wound was confirmed dry. It was irrigated again with antiseptic. 1 g of vancomycin powde r was placed within the wound. The deltopectoral interval was closed with interrupted 0 Vicryl suture. Subcutaneous tissues were closed with interrupted 3-0 Monocryl suture. Skin was closed with shawn. Wound was dressed with Acticoat dressing and OpSite. Sponge counts, instrument counts, needle counts were correct. Patient was then awoken from anesthesia. Transferred from the operating room table to the operating room stretcher. There was no intraoperative complications patient tolerated procedure well stable to PACU. Postop plan: Patient will be admitted for IV antibiotics and await culture results. We will also obtain infectious disease consultation given the fact did not involve the deep compartment but patient does have high risk of periprosthetic infection given his multiple revision surgeries and thus consideration for possible IV antibiotics as per infectious disease recommendation. Prior cultures did demonstrate P. acnes
[2020-03-31] MEDS ORDERED: MORPHINE SULFATE 10 MG/ML INJ IV PRN (23:24)
[2020-03-31] MEDS: OXYCODONE-ACETAMINOPHEN 5-325 MG TABLET PO PRN (23:31)
[2020-04-01] MEDS: OXYCODONE-ACETAMINOPHEN 5-325 MG TABLET PO PRN ×3 (05:39→19:54)
[2020-04-01 08:14] LABS: ABSOLUTE BASOPHILS # (AUTO) 0.2 10^3/uL (0.0-0.2); ABSOLUTE EOSINOPHILS # (AUTO) 0.2 10^3/uL (0.0-0.6); ABSOLUTE LYMPHOCYTES (AUTO) 1.4 10^3/uL (0.5-4.7); ABSOLUTE MONOCYTES (AUTO) 0.6 10^3/uL (0.1-1.4); ABSOLUTE NEUT (AUTO) 9.6 10^3/uL (1.7-8.2); BASOPHILS % (AUTO) 1.3 % (0-2); EOSINOPHILS % (AUTO) 1.5 % (0-6); HEMATOCRIT 35.5 % (37.9-51.0); HEMOGLOBIN 11.9 g/dL (13.5-17.0); LYMPHOCYTES % (AUTO) 11.4 % (13-45); MEAN CORPUSCULAR HGB CONC 33.6 g/dL (32.0-36.0); MEAN CORPUSCULAR VOLUME 80 fl (80-97); MONOCYTES % (AUTO) 5.2 % (3-13); PLATELET COUNT 364 10^3/uL (150-450); RED BLOOD COUNT 4.42 10^6/uL (4.35-5.55); RED CELL DISTRIBUTION WIDTH 13.7 % (11.5-14.0); SEGMENTED NEUTROPHILS % (AUTO) 80.6 % (42-78); TOTAL CELLS COUNTED % (AUTO) 100 %; WHITE BLOOD COUNT 11.9 10^3/uL (4.0-10.5)
[2020-04-01] MEDS: CEFTRIAXONE 2 GM/D5W RTU 2 GM/50 ML RTUPB IV SCH (09:06)
--- NOTE | 2020-04-01 10:13 | PDOC PROGRESS REPORT ---
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 Results Laboratory Results: 04/01/20 08:04 04/01/20 08:04 WBC 11.9 H RBC 4.42 Hgb 11.9 L Hct 35.5 L MCV 80 MCH 27.0 MCHC 33.6 RDW 13.7 Plt Count 364 Seg Neutrophils % 80.6 H Assessment & Plan - Plan Summary Plan Summary: Went to await the final results of the cultures patient is doing overall well labs look very good.
--- NOTE | 2020-04-01 14:17 | Progress Note ---
Provider Note Provider Note: [facility] ID Telephone Advice Consultation Chart reviewed. Patient is a 54-year-old man with history of hypertension, p neumonia, DM2, nephrolithiasis who has had 3 shoulder replacements, the most recent intervention was in December 2019. AT that time, cultures were negative. Patient started presenting pain, redness and swelling of the shoulder. He was evaluated in the Ed on 03/18. He had a X ray that showed postsurgical changes and possible joint effusion. An US of the joint showed a complex hypoechoic collection along the left shoulder concerning for abscess. Joint aspiration was done and cultures grew P acnes and Peptostreptococcus. He was taken to the OR on 03/31 for irrigation and debridement. Per operative note, the infection didn't track deep to the joint/prosthesis. He was started on ceftriaxone. ID consulted for recommendations. Allergies: monosodium glutamate Allergy (Severe, Verified 03/30/20 15:49) VOMITING; HEADACHES Medications: Pregabalin [Lyrica] 150 mg PO Q8 01/31/13 Metformin HCl [Glucophage] 1,000 mg PO BID 09/06/16 Sitagliptin Phosphate [Januvia] 100 mg PO DAILY 09/06/16 Fluticasone Propionate [Flonase Nasal [place] 50 Mcg/[place] 16 gm] 2 spray NASL DAILY 05/03/17 Cyclobenzaprine HCl 10 mg PO BID 10/09/17 Sulfamethoxazole/Trimethoprim [Bactrim Ds Tablet] 1 each PO ASDIR PRN 03/19/20 Hydrocodone/Acetaminophen [Vicodin Hp 10-300 mg Tablet] 1 tab PO Q6HP PRN 03/23/20 Vital Signs: Temp Pulse Resp BP Pulse Ox 97.9 F 83 17 139/42 H 94 04/01/20 08:18 04/01/20 08:18 04/01/20 08:18 04/01/20 08:18 04/01/20 08:18 Intake & Output 03/31/20 04/01/20 04/02/20 06:59 06:59 06:59 Intake Total 1900 786 Output Total 200 Balance 1700 786 Weight 128.4 kg Weight/Height Weight 128.4 kg Height 6 ft 3 in Laboratories: 04/01/20 08:04 MCV 80 fl (80-97) 04/01/20 08:04 MCH 27.0 pg (27.0-33.4) 04/01/20 08:04 MCHC 33.6 g/dL (32.0-36.0) 04/01/20 08:04 RDW 13.7 % (11.5-14.0) 04/01/20 08:04 Seg Neutrophils % 80.6 % (42-78) H 04/01/20 08:04 ESR 44 CRP 36.5 WBC synovial fluid: 149,000 Microbiology: Blood culture: 03/18 Negative Synovial Fluid 03/19 Cutibacterium acnes, Peptostreptococcus Assessment and Recommendations: Patient with multiple left shoulder arthroplasties, most recently in December complicated now by surgical site infection vs prosthetic joint infection. Per operative note the infection didn't extend to the prosthesis but the cultures grew Peptostreptococcus and Cutibacterium acnes which has been associated with PJI. Ceftriaxone is adequate to treat both organisms. It will be challenging to treat this infection as there is retention of the prosthesis and this will likely perpetuate the infection. This is likely a PJI for which will recommend 6 weeks of therapy with ceftriaxone 2g IV daily. If after completion of the antibiotic therapy there is recurrence of the infection, he will need a 2-stage revision to make sure we eradicate the infection. If not a candidate for further surgeries, he might need suppressive therapy. EOT 05/12/20. While on therapy please monitor CBC, CMP, ESR, CRP weekly. Please remove PICC line at completion of therapy. Call back if any questions or updates. Ermelinda Kuhn MD [facility] [place] [phone]
[2020-04-02] MEDS: OXYCODONE-ACETAMINOPHEN 5-325 MG TABLET PO PRN (03:57)
[2020-04-02 05:53] LABS: ANION GAP 6 (5-19); BLOOD UREA NITROGEN 12 mg/dL (7-20); CALCIUM 9.1 mg/dL (8.4-10.2); CARBON DIOXIDE 26 mmol/L (22-30); CHLORIDE 101 mmol/L (98-107); GLUCOSE 346 mg/dL (75-110)
[2020-04-02 05:56] LABS: POTASSIUM 4.5 mmol/L (3.6-5.0)
[2020-04-02] MEDS: CEFTRIAXONE 2 GM/D5W RTU 2 GM/50 ML RTUPB IV SCH (09:12)
[2020-04-02] MEDS ORDERED: NORMAL SALINE 10 ML SDV (AFTER EACH USE) IV PRN (11:30)
--- NOTE | 2020-04-02 12:11 | RADIOLOGY REPORT (SQ) ---
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 FLUOROSCOPY TIME: 53 seconds. 1 images saved to PACS. TECHNIQUE: Fluoroscopic and ultrasound guided PICC placement. LIMITATIONS: None. PROCEDURE: After written consent and assessment were obtained, the patient was brought into the fluo roscopy room and placed supine on the table. Ultrasound evaluation of potential access sites were per formed. After successfully identifying a patent right basilic vein, the right arm was prepped and loly ped in a sterile fashion along with the ultrasound probe. The entry site was anesthetized with 1% lid ocaine. A 21 gauge 7 cm needle was advanced through the skin and into the basilic vein under live ult rasound guidance. An ultrasound image was saved to PACS confirming access site. A .018 guide wire w as then inserted through the needle and into the venous system. The needle was then removed and an 11 blade scalpel was used to make a 1cm skin incision. A 5 fr peel-away sheath was advanced over the w robbie and into the venous system. A measurement was then made using the existing wire and live fluorosc opic guidance. The wire was then removed and trimmed. The PICC was advanced through the peel-away she ath and into the venous system. The peel-away sheath was removed and the catheter was adhered to the patients arm with a stat lock. The catheter was then aspirated and flushed and a sterile bandage was placed over the access site. A fluoroscopic spot image was saved to PACS confirming the catheter tip within the superior vena cava. IMPRESSION: SUCCESSFUL PLACEMENT OF A 5 FR DUAL LUMEN 41 CM PICC IN THE RIGHT BASILIC VEIN. COMMENT: Patient medication list reviewed: Yes- Quality ID# [id number]:Eligible professional attests to doc umenting in the medical record they obtained, updated, or reviewed the patient's current medications. . Quality ID 145: Final reports for procedures using fluoroscopy that document radiation exposure jannet jack, or exposure time and number of fluorographic images (if radiation exposure indices are not avail able) Quality ID #76: The patient was prepped and draped using maximum sterile barrier technique including cap, mask, sterile gown, sterile gloves, a large sterile sheet, hand hygiene, and 2% Chlorhexidine fo r cutaneous antisepsis. When ultrasound is used, sterile ultrasound techniques are followed requiring sterile gel and sterile probes. TECHNICAL DOCUMENTATION: JOB ID: [id number] 2010 [employer]- All Rights Reserved rev Reading location - IP/workstation name: [email or web address]
--- NOTE | 2020-04-02 15:20 | PDOC PROGRESS REPORT ---
Subjective Progress Note for:: 04/02/20 Subjective:: Patient is doing well following left shoulder TSA and I&D. He reports that he is ready to go home. PICC line has been inserted. Patient reports he is eating well, drinking well and having no issues with bowel or bladder function Reason For Visit: LEFT SHOULDER INFECTION Physical Exam Vital Signs: Temp Pulse Resp BP Pulse Ox 98.1 F 92 20 155/83 H 98 04/02/20 10:54 04/02/20 10:54 04/02/20 10:54 04/02/20 10:54 04/02/20 10:54 Intake & Output 04/01/20 04/02/20 04/03/20 06:59 06:59 06:59 Intake Total 1900 1742 650 Output Total 200 Balance 1700 1742 650 Weight 128.4 kg 128.6 kg General appearance: PRESENT: no acute distress, cooperative Musculoskeletal exam: PRESENT: other - N/V intact moves fingers with no pain or difficulty. limited ROM is noted. Skin exam: PRESENT: dry, warm Results Laboratory Results: 04/01/20 08:04 04/02/20 05:10 04/02/20 05:10 Sodium 133.4 L Potassium 4.5 Chloride 101 Carbon Dioxide 26 Anion Gap 6 BUN 12 Creatinine 0.54 Est GFR ( Amer) > 60 Glucose 346 H Calcium 9.1 Impressions: PICC Line Insertion 04/02/20 00:00 IMPRESSION: SUCCESSFUL PLACEMENT OF A 5 FR DUAL LUMEN 41 CM PICC IN THE RIGHT BASILIC VEIN. Assessment & Plan - Time Time Spent with patient: Less than 15 minutes - Plan Summary Plan Summary: Ok to d/c home when IV Abx and home health are established.
[2020-04-02 15:34] VITALS: BP 158/73
[2020-04-02] MEDS ORDERED: NORMAL SALINE 10 ML SDV (SCHEDULED) IV SCH (22:00)
== END 2020-04-02 15:56 | disposition home health service (06) | DRG 465 ==
LOC: OROUT 08:32 → 4N 15:50 → OROUT 15:51 → 4N 04-01 07:48
PROVIDERS: ADMIT Orthopaedic Surgery; ATTEND Orthopaedic Surgery
PROC: 0JBF0ZZ Excision of Left Upper Arm Subcutaneous Tissue and Fascia, Open Approach (ICD-10-PCS; principal; 2020-03-31 10:30)
PROC: 02HV33Z Insertion of Infusion Device into Superior Vena Cava, Percutaneous Approach (ICD-10-PCS; 2020-04-02)
PROC: B5171ZA Fluoroscopy of Left Subclavian Vein using Low Osmolar Contrast, Guidance (ICD-10-PCS; 2020-04-02)
PROC: B547ZZA Ultrasonography of Left Subclavian Vein, Guidance (ICD-10-PCS; 2020-04-02)
DX: T84.59XA Infection and inflammatory reaction due to other internal joint prosthesis, initial encounter (principal); Z96.612 Presence of left artificial shoulder joint; Z98.1 Arthrodesis status; E11.9 Type 2 diabetes mellitus without complications; G47.30 Sleep apnea, unspecified; I10 Essential (primary) hypertension; B96.89 Other specified bacterial agents as the cause of diseases classified elsewhere; Y83.1 Surgical operation with implant of artificial internal device as the cause of abnormal reaction of the patient, or of later complication, without mention of misadventure at the time of the procedure; Z87.891 Personal history of nicotine dependence; Z79.899 Other long term (current) drug therapy; Z96.659 Presence of unspecified artificial knee joint; Z88.8 Allergy status to other drugs, medicaments and biological substances; Z79.84 Long term (current) use of oral hypoglycemic drugs
CPT/HCPCS: 1630; 36415; 36573; 80048; 82962; 85025; 87070; 87075; 87077; 87186; 87205; C9290; J0690; J0696; J1170; J1642; J2250; J2370; J2405; J2704; J2765; J3010; J3370; J3490

== ENCOUNTER → 2020-06-19 | Outpatient (CLI) | payer MEDICARE, MEDICAID ==
--- NOTE | 2020-06-19 14:45 | RADIOLOGY REPORT (SQ) ---
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 TECHNIQUE: Axial imaging performed through the left shoulder with reformatted coronal and sagittal i maging windowed for bone and soft tissues. Images saved to PACS. 3D IMAGING: Were 3D images as MIP, SSD, or volume rendering performed at the work station? Yes. All CT scanners at this facility use dose modulation, iterative reconstruction, and/or weight based d osing when appropriate to reduce radiation dose to as low as reasonably achievable (ALARA). [facility]: Dose Right [facility]: CareDose [facility]: Dose Right [facility]: Teradose 4D [facility]: [employer] LIMITATIONS: Significant beam hardening artifact related to the shoulder arthroplasty. This locally obscures soft tissue and bone. RADIATION DOSE: CT Rad equipment meets quality standard of care and radiation dose reduction techniq ues were employed. CTDIvol: 24.8 mGy. DLP: 755 mGy-cm. mGy. FINDINGS: SOFT TISSUES: No lung lesions. No evidence of axillary adenopathy. BONES: Reverse arthroplasty in place without subluxation or dislocation. No periprosthetic lucency o r fracture identified. No hardware failure detected. No regional calcifications or fragments eviden t. Widening of the AC joint with chronic fracture/ calcification along the distal clavicle. Ribs ar e intact. MINERALIZATION: Normal. OTHER: No other significant finding. IMPRESSION: 1. Intact left reverse shoulder arthroplasty. TECHNICAL DOCUMENTATION: JOB ID: [id number] Quality ID # [id number]: Final reports with documentation of one or more dose reduction techniques (e.g., Au tomated exposure control, adjustment of the mA and/or kV according to patient size, use of iterative reconstruction technique) 2010 [employer]- All Rights Reserved Reading location - IP/workstation name: [email or web address]
== END ==
LOC: RAD 10:29
PROVIDERS: ATTEND Orthopaedic Surgery
DX: Z47.1 Aftercare following joint replacement surgery (principal); Z96.612 Presence of left artificial shoulder joint
CPT/HCPCS: 82565

== ENCOUNTER → 2020-07-07 | Outpatient (CLI) | payer MEDICARE, MEDICAID ==
[2020-07-07 10:43] LABS: HEMOGLOBIN 13.5 g/dL (13.5-17.0); MEAN CORPUSCULAR HEMOGLOBIN 27.5 pg (27.0-33.4); MEAN CORPUSCULAR HGB CONC 33.8 g/dL (32.0-36.0); MEAN CORPUSCULAR VOLUME 82 fl (80-97); PLATELET COUNT 340 10^3/uL (150-450); RED BLOOD COUNT 4.92 10^6/uL (4.35-5.55); RED CELL DISTRIBUTION WIDTH 15.4 % (11.5-14.0); WHITE BLOOD COUNT 8.5 10^3/uL (4.0-10.5)
[2020-07-07 11:14] LABS: ALBUMIN 4.2 g/dL (3.5-5.0); ALKALINE PHOSPHATASE 96 U/L (38-126); ANION GAP 10 (5-19); ASPARTATE AMINO TRANSFERASE 19 U/L (17-59); BILIRUBIN,DIRECT 0.3 mg/dL (0.0-0.4); BILIRUBIN,TOTAL 0.5 mg/dL (0.2-1.3); BLOOD UREA NITROGEN 14 mg/dL (7-20); C-REACTIVE PROTEIN 26.9 mg/L (<10.0); CALCIUM 10.2 mg/dL (8.4-10.2); CARBON DIOXIDE 26 mmol/L (22-30); CHLORIDE 103 mmol/L (98-107); GLUCOSE 196 mg/dL (75-110); POTASSIUM 5.2 mmol/L (3.6-5.0); TOTAL PROTEIN 7.2 g/dL (6.3-8.2)
[2020-07-07 11:39] LABS: ERYTHROCYTE SEDIMENTATION RATE 74 mm/hr (0-20)
== END ==
LOC: OD 09:53
PROVIDERS: ATTEND Orthopaedic Surgery
DX: Z01.812 Encounter for preprocedural laboratory examination (principal); Z96.612 Presence of left artificial shoulder joint
CPT/HCPCS: 36415; 80053; 85027; 85652; 86140

== ENCOUNTER → 2020-07-07 | Outpatient (CLI) | payer MEDICARE, MEDICAID ==
--- NOTE | 2020-07-07 09:33 | RADIOLOGY REPORT (SQ) ---
EXAM DESCRIPTION: CT LT UPPER EXTREMITY WITH IMAGES COMPLETED DATE/TIME: 07/07/2020 9:12 am REASON FOR STUDY: (Z96.612)PRESENCE OF LEFT ARTIFICIAL SHOULDER JOINT Z96.612 PRESENCE OF LEFT VASQUEZ FICIAL SHOULDER JOINT COMPARISON: 06/19/2020. TECHNIQUE: Postcontrast axial imaging performed through the left shoulder with reformatted coronal a nd sagittal imaging windowed for bone and soft tissues. Images saved to PACS. 3D IMAGING: Were 3D images as MIP, SSD, or volume rendering performed at the work station? Yes. All CT scanners at this facility use dose modulation, iterative reconstruction, and/or weight based d osing when appropriate to reduce radiation dose to as low as reasonably achievable (ALARA). [facility]: Dose Right [facility]: CareDose [facility]: Dose Right [facility]: Teradose 4D [facility]: Tag & See CONTRAST TYPE AND DOSE: contrast/concentration: Isovue 350.00 mmol/ml; Total Contrast Delivered: 50. 0 ml; Total Saline Delivered: 40.0 ml RENAL FUNCTION: Creatinine 0.7. LIMITATIONS: Metallic artifact from left shoulder prosthesis. RADIATION DOSE: CT Rad equipment meets quality standard of care and radiation dose reduction techniq ues were employed. CTDIvol: 33.0 mGy. DLP: 1026 mGy-cm.mGy. FINDINGS: SOFT TISSUES: Interval development of an irregular fluid collection in the soft tissues an terior to the shoulder prosthesis. Partially obscured by beam hardening artifact from metallic hardw are. The fluid collection extends close to the skin surface with scattered bubbles of gas within. O verall transverse measurements on axial imaging approximately 4.5 cm. BONES: Intact prosthesis. Chronic deformity of the distal clavicle. No acute bony findings. MINERALIZATION: Normal. ENHANCEMENT: No abnormal enhancement. OTHER: No other significant finding. IMPRESSION: INTACT SHOULDER PROSTHESIS. INTERVAL DEVELOPMENT OF A 4.5 CM IRREGULAR GAS AND FLUID CO LLECTION IN THE ANTERIOR SOFT TISSUES MOST CONSISTENT WITH DEVELOPING ABSCESS. TECHNICAL DOCUMENTATION: JOB ID: [id number] Quality ID # [id number]: Final reports with documentation of one or more dose reduction techniques (e.g., Au tomated exposure control, adjustment of the mA and/or kV according to patient size, use of iterative reconstruction technique) 2010 [email or web address]- All Rights Reserved Reading location - IP/workstation name: [email or web address]
== END ==
LOC: RAD 08:28
PROVIDERS: ATTEND Orthopaedic Surgery
DX: Z47.1 Aftercare following joint replacement surgery (principal); Z96.612 Presence of left artificial shoulder joint

== ENCOUNTER 2020-07-10 12:45 | Observation (INO) | payer MEDICARE, MEDICAID ==
[~2020-07-10 12:45] MED LIST changes: +FENTANYL CITRATE INJ/PF 100 MCG/2 ML AMPUL ONE; -METOCLOPRAMIDE HCL INJ/PF 10 MG/2 ML SDV ONE; +MIDAZOLAM 2 MG/2 ML INJ ONE; -PHENYLEPHRINE HCL INJ/PF 10 MG/1 ML SDV ONE; +PROPOFOL INJ 200 MG/20 ML VIAL IV ONE; -ROCURONIUM BROMIDE INJ 50 MG/5 ML VIAL IV ONE; +SUCCINYLCHOLINE CHLORIDE INJ 200 MG/10 ML VIAL ONE
[2020-07-10] MEDS ORDERED: FENTANYL CITRATE INJ/PF 100 MCG/2 ML AMPUL ONE (13:38)
[2020-07-10 14:28] LABS: APPEARANCE,URINE CLEAR; BILIRUBIN,URINE NEGATIVE (NEGATIVE); COLOR,URINE YELLOW; GLUCOSE, URINE NEGATIVE (NEGATIVE); KETONES,URINE NEGATIVE (NEGATIVE); LEUKOCYTE ESTERASE,URINE NEGATIVE (NEGATIVE); NITRITE,URINE NEGATIVE (NEGATIVE); PROTEIN,URINE NEGATIVE (NEGATIVE); URINE SPECIFIC GRAVITY 1.011; UROBILINOGEN,URINE NEGATIVE mg/dL (<2.0)
[2020-07-10] MEDS ORDERED: ONDANSETRON HCL INJ/PF 4 MG/2 ML SDV IV PRN (15:05)
[2020-07-10] MEDS ORDERED: MORPHINE SULFATE 10 MG/ML INJ IV PRN (15:05)
[2020-07-10] MEDS ORDERED: DIPHENHYDRAMINE HCL 50 MG/ML VIAL IV PRN (15:05)
[2020-07-10] MEDS ORDERED: MEPERIDINE HCL/PF INJ 25 MG/1 ML DISP.SYRIN IV PRN (15:05)
[2020-07-10] MEDS ORDERED: PROMETHAZINE HCL INJ 25 MG/1 ML VIAL IV PRN ×2 (15:05)
[2020-07-10] MEDS ORDERED: FENTANYL CITRATE INJ/PF 100 MCG/2 ML AMPUL IV PRN ×3 (15:05)
[2020-07-10] MEDS ORDERED: VANCOMYCIN HCL INJ 1000 MG VIAL ONE (15:29)
[2020-07-10] MEDS ORDERED: HYDROMORPHONE HCL INJ/PF 2 MG/ML AMPULE ONE (16:02)
--- NOTE | 2020-07-10 16:02 | Operative Report ---
Operative Report DATE OF SURGERY: 07/10/20 PREOPERATIVE DIAGNOSIS: Left shoulder periprosthetic infection OPERATION: Irrigation debridement and revision of glenosphere and proximal humeral components SURGEON: Orlando IRVING [employer] SEWING MACHINE: HERNAN ROSEN ANESTHESIA: GA TISSUE REMOVED OR ALTERED: Cultures x2 to microbiology. Implants to CSS ESTIMATED BLOOD LOSS: 100 PROCEDURE: With the patient in the beachchair position on the operating table the left upper extremity and forequarter prepped and draped in a sterile fashion. A standard deltopectoral approach to the shoulder is taken. Upon transecting the dermis is clear that the abscess which is palpable preoperatively, is not in direct line with the incision and sits proximal and lateral to the deltopectoral incision. Soft tissues dissected towards the abscess which uncovers approximately 50 cc of serosanguineous/purulent material. This was collected and sent for culture and sensitivity. The wound is debrided with scraping and a rondure. It is irrigated with 3 L of normal saline containing Betadine. A deeper dissection then ensued used to expose the underlying joint. The shoulder is dislocated. The proximal Kelly humeral component is removed using a tuning fork. The glenosphere is then removed using an appropriate compression screw. The wound is again debrided and irrigated with pulse lavage using normal saline and Betadine. The underlying screws and the baseplate are examined. The place baseplate excess seems solid and screws are tightened. A new glenosphere component is impacted onto the baseplate and a new proximal humeral component is then impacted onto the humerus. The joint is reduced. It is again irrigated with 3 L of normal saline with antibiotic Betadine using pulse lavage. Vancomycin powder was next placed into the wound around the implant. The wound is then closed is interrupted PDS followed by nylon. A sterile dressing was placed and the patient is returned to the PACU in satisfactory condition.
--- NOTE | 2020-07-10 16:06 | Discharge Summary ---
Discharge Summary (SDC) - Discharge Final Diagnosis: Left periprosthetic shoulder infection Date of Surgery: 07/10/20 Discharge Date: 07/11/20 Condition: Good Treatment or Instructions: Limit activity to reasonable levels. You can shower but please do not immerse the upper extremity and torso in water. Prescriptions: Ciprofloxacin HCl [Cipro 750 mg Tablet] 750 mg PO BID #24 tablet Oxycodone HCl/Acetaminophen [Percocet 5-325 mg Tablet] 1 tab PO Q6 #25 tab Discharge Diet: Regular Respiratory Treatments at Home: Deep Breathing/Coughing Discharge Activity: Balance Activity w/Rest, No tub bath
[2020-07-10] MEDS ORDERED: RINGERS SOLUTION,LACTATED 1,000 ML IV PRN (16:32)
[2020-07-10] MEDS ORDERED: OXYCODONE HCL IR 5 MG TABLET PO PRN (16:33)
[2020-07-10] MEDS: CIPROFLOXACIN HCL 750 MG TABLET PO SCH (22:30)
[2020-07-10] MEDS: OXYCODONE HCL SR 10 MG TABLET PO SCH (22:30)
[2020-07-11 05:54] LABS: ABSOLUTE BASOPHILS # (AUTO) 0.1 10^3/uL (0.0-0.2); ABSOLUTE EOSINOPHILS # (AUTO) 0.3 10^3/uL (0.0-0.6); ABSOLUTE LYMPHOCYTES (AUTO) 2.1 10^3/uL (0.5-4.7); ABSOLUTE MONOCYTES (AUTO) 0.7 10^3/uL (0.1-1.4); ABSOLUTE NEUT (AUTO) 6.8 10^3/uL (1.7-8.2); BASOPHILS % (AUTO) 0.7 % (0-2); EOSINOPHILS % (AUTO) 3.1 % (0-6); HEMATOCRIT 33.9 % (37.9-51.0); HEMOGLOBIN 11.5 g/dL (13.5-17.0); LYMPHOCYTES % (AUTO) 21.2 % (13-45); MEAN CORPUSCULAR HEMOGLOBIN 27.5 pg (27.0-33.4); MEAN CORPUSCULAR HGB CONC 33.9 g/dL (32.0-36.0); MEAN CORPUSCULAR VOLUME 81 fl (80-97); MONOCYTES % (AUTO) 7.2 % (3-13); PLATELET COUNT 304 10^3/uL (150-450); RED BLOOD COUNT 4.18 10^6/uL (4.35-5.55); RED CELL DISTRIBUTION WIDTH 15.1 % (11.5-14.0); SEGMENTED NEUTROPHILS % (AUTO) 67.8 % (42-78); TOTAL CELLS COUNTED % (AUTO) 100 %
[2020-07-11 06:04] LABS: ANION GAP 9 (5-19); BLOOD UREA NITROGEN 12 mg/dL (7-20); CARBON DIOXIDE 24 mmol/L (22-30); CHLORIDE 103 mmol/L (98-107); GLUCOSE 316 mg/dL (75-110); POTASSIUM 4.5 mmol/L (3.6-5.0)
--- NOTE | 2020-07-11 08:34 | PDOC PROGRESS REPORT ---
Subjective Progress Note for:: 07/11/20 Subjective:: Patient feeling well this morning. No complaints overnight events. Desires to go home. Reason For Visit: Z96.612 PRESENCE OF LEFT ARTIFICIAL SHOULDER JOINT Physical Exam Vital Signs: Temp Pulse Resp BP Pulse Ox 97.7 F 74 17 159/79 H 96 07/11/20 07:12 07/11/20 07:12 07/11/20 07:12 07/11/20 07:12 07/11/20 07:12 Intake & Output 07/10/20 07/11/20 07/12/20 06:59 06:59 06:59 Intake Total 7850 Output Total 650 Balance 7200 Weight 126.1 kg 131.2 kg Results Laboratory Results: 07/11/20 05:25 07/11/20 05:25 07/10/20 07/11/20 07/11/20 13:47 05:25 05:25 WBC 10.0 RBC 4.18 L Hgb 11.5 L Hct 33.9 L MCV 81 MCH 27.5 MCHC 33.9 RDW 15.1 H Plt Count 304 Seg Neutrophils % 67.8 Sodium 136.2 L Potassium 4.5 Chloride 103 Carbon Dioxide 24 Anion Gap 9 BUN 12 Creatinine 0.54 Est GFR ( Amer) > 60 Glucose 316 H Calcium 9.0 Urine Color YELLOW Urine Appearance CLEAR Urine pH 5.0 Ur Specific [place] 1.011 Urine Protein NEGATIVE Urine Glucose (UA) NEGATIVE Urine Ketones NEGATIVE Urine Blood SMALL H Urine Nitrite NEGATIVE Ur Leukocyte Esterase NEGATIVE Urine RBC (Auto) 0 Assessment & Plan - Diagnosis (1) 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 Malin -Limit left upper extremity weightbearing until further instructions -Physical therapy and Occupational Therapy. - Time Time Spent with patient: Less than 15 minutes
[2020-07-11 08:56] VITALS: BP 155/89
[2020-07-11] MEDS: CIPROFLOXACIN HCL 750 MG TABLET PO SCH (09:08)
[2020-07-11] MEDS: OXYCODONE HCL SR 10 MG TABLET PO SCH (09:09)
[2020-07-11] MEDS ORDERED: ASPIRIN 81 MG TABLET, ENT COATED PO SCH (10:00)
== END 2020-07-11 09:28 | disposition home or self-care (01) ==
LOC: OROUT 13:38 → EDSTATUS 15:45 → OROUT 17:20 → 4N 17:20 → OROUT 07-11 09:28
PROVIDERS: ADMIT Orthopaedic Surgery; ATTEND Orthopaedic Surgery
DX: T84.59XA Infection and inflammatory reaction due to other internal joint prosthesis, initial encounter (principal); Y83.8 Other surgical procedures as the cause of abnormal reaction of the patient, or of later complication, without mention of misadventure at the time of the procedure; Z96.612 Presence of left artificial shoulder joint; Z79.899 Other long term (current) drug therapy; Z79.84 Long term (current) use of oral hypoglycemic drugs; I10 Essential (primary) hypertension; E11.9 Type 2 diabetes mellitus without complications; Z87.891 Personal history of nicotine dependence; Z03.818 Encounter for observation for suspected exposure to other biological agents ruled out
CPT/HCPCS: 23474; 36415; 87070 ×2; 87205; 82962; 85025; 87075; 80048; 81001; 83036; 01638; G0378 ×2; G0379; C1776 ×3; U0003; J2250; J3010; A9270 ×5; J1170; J0330; J2405; J7120; J2704; J3370; C9803; 1638; 87635; J3490